=== PATIENT | female | born 1985 | race Caucasian/White ===

== ENCOUNTER 2019-04-10 19:52 | Inpatient (IN) | payer OTHER ==
[2019-04-10] MEDS ORDERED: SODIUM CHLORIDE 0.9% 1,000 ML IV STA (21:48)
[2019-04-10] MEDS ORDERED: ONDANSETRON 4 MG/2 ML VIAL IVP STA ×2 (21:48→22:54)
[2019-04-10] MEDS ORDERED: HYDROmorphone 1 MG/ML 1 ML SYRINGE IVP STA (21:48)
--- NOTE | 2019-04-10 22:24 | XR ---
EXAM: XR Abdomen, 2 Views CLINICAL HISTORY: Dark tarry stools TECHNIQUE: Frontal view of the abdomen/pelvis with upright view of the abdomen. COMPARISON: No relevant prior studies available. FINDINGS: Intraperitoneal space: No free air. Gastrointestinal tract: Unremarkable. No dilation. Bones/joints: Unremarkable. Soft tissues: IUD projects over the pelvis. IMPRESSION: No acute findings.
[2019-04-10 22:44] LABS: Basophils # (A) 0.1 k/uL (0-0.2); Basophils % (A) 0 %; Eosinophils # (A) 0.1 k/uL (0-0.7); Eosinophils % (A) 0 %; HCT 45.7 % (34.0-46.0); HGB 15.2 gm/dL (11.4-16.0); Lymphocytes # (A) 1.9 k/uL (1.0-4.8); Lymphocytes % (A) 8 %; MCH 30.8 pg (25.0-35.0); MCHC 33.2 g/dL (31.0-37.0); MCV 92.7 fL (80.0-100.0); Monocytes # (A) 1.3 k/uL (0-1.0); Monocytes % (A) 5 %; Neutrophils % (A) 85 %; Platelet Count 321 k/uL (150-450); RBC 4.92 m/uL (3.80-5.40); RDW 12.2 % (11.5-15.5); WBC 24.7 k/uL (3.8-10.6)
[2019-04-10 22:55] LABS: ALT 28 U/L (9-52); AST 30 U/L (14-36); Albumin 4.6 g/dL (3.5-5.0); Alkaline Phosphatase 77 U/L (38-126); Amylase 152 U/L (30-110); Anion Gap 11 mmol/L; Blood Urea Nitrogen 8 mg/dL (7-17); Calcium 10.1 mg/dL (8.4-10.2); Carbon Dioxide 24 mmol/L (22-30); Chloride 101 mmol/L (98-107); Glucose 95 mg/dL (74-99); Lipase 1751 U/L (23-300); Potassium 4.1 mmol/L (3.5-5.1); Sodium 136 mmol/L (137-145); Total Bilirubin 0.6 mg/dL (0.2-1.3); Total Protein 7.9 g/dL (6.3-8.2)
[2019-04-10 23:02] LABS: INR 0.9 (<1.2); Partial Thromboplastin Time 27.1 sec (22.0-30.0); Prothrombin Time 9.7 sec (9.0-12.0)
--- NOTE | 2019-04-10 23:28 | CT ---
EXAM: CT Abdomen and Pelvis With Intravenous Contrast CLINICAL HISTORY: Pain TECHNIQUE: Axial computed tomography images of the abdomen and pelvis with intravenous contrast. CTDI is 0.085, 0.085, 6.6, 6.4 mGy and DLP is 567. 8 mGy-cm. This CT exam was performed using one or more of the following dose reduction techniques: automated exposure control, adjustment of the mA and/or kV according to patient size, and/or use of iterative reconstruction technique. COMPARISON: No relevant prior studies available. FINDINGS: Lung bases: Unremarkable. No mass. No consolidation. ABDOMEN: Liver: Unremarkable. Gallbladder and bile ducts: Unremarkable. Pancreas: Unremarkable. Spleen: Unremarkable. Adrenals: Unremarkable. Kidneys and ureters: Unremarkable. Stomach and bowel: Marked wall thickening with adjacent stranding seen within the descending colon suggesting nonspecific inflammatory or infectious colitis. PELVIS: Appendix: Appendix is unremarkable. Bladder: Unremarkable. Reproductive: IUD is noted and appears to be in appropriate position. ABDOMEN and PELVIS: Intraperitoneal space: Unremarkable. Bones/joints: No acute fracture. No dislocation. Soft tissues: Unremarkable. Vasculature: Unremarkable. No abdominal aortic aneurysm. Lymph nodes: Unremarkable. IMPRESSION: Marked wall thickening with adjacent stranding seen within the descending colon suggesting nonspecific inflammatory or infectious colitis.
[2019-04-10] MEDS ORDERED: metroNIDAZOLE-NS PMX 500 MG in SALINE 1 100ML.BAG IVPB STA (23:44)
[2019-04-10] MEDS ORDERED: METOCLOPRAMIDE 5 MG/ML 2 ML VIAL IVP STA (23:45)
[2019-04-10] MEDS ORDERED: diphenhydrAMINE 50 MG/ML 1 ML VIAL IVP STA (23:45)
[2019-04-10] MEDS ORDERED: SODIUM CHLORIDE 0.9% 1,000 ML IV ONE (23:45)
[2019-04-10] MEDS ORDERED: NALOXONE 0.4 MG/ML 1 ML VIAL IV PRN (23:46)
[2019-04-10] MEDS ORDERED: ONDANSETRON 4 MG/2 ML VIAL IVP PRN (23:46)
--- NOTE | 2019-04-10 23:51 | ED ---
Abdominal Pain HPI - General Chief Complaint: Abdominal Pain Stated Complaint: Blood in stool Time Seen by Provider: 04/10/19 21:22 Source: patient Mode of arrival: wheelchair Limitations: no limitations - History of Present Illness Initial Comments: 33-year-old female patient comes in in moderate distress for evaluation of abdominal pain. Patient states she started having abdominal pain yesterday. Patient states the pain is across her central abdomen. Denies any radiation of the pain to her back. Patient states starting yesterday as well she has had dark tarry stools. States she's had 4-5 episodes of similar type stool. She denies any fever or chills. States she has been very nauseated, but has not vomited. Patient denies any history of similar symptoms. Patient reports drinking 1-2 alcoholic beverages per week. Admits to daily marijuana use. Patient states she has had symptoms of acid reflux in the past but has never been formally diagnosed, has used OTC medications as needed for this. She denies any hematuria, dysuria, urinary urgency, urinary frequency. She denies chance of . Denies any history of abdominal surgery. Patient denies any recent rash, shortness breath, chest pain, numbness, tingling, dizziness, weakness, headache, visual changes, or any other complaints. - Related Data Home Medications Medication Instructions Recorded Confirmed No Known Home Medications 04/10/19 04/10/19 Allergies Allergy/AdvReac Type Severity Reaction Status Date / Time rizatriptan [From Maxalt] AdvReac vision loss Verified 04/10/19 20:21 Review of Systems ROS Statement: Those systems with pertinent positive or pertinent negative responses have been documented in the HPI. ROS Other: All systems not noted in ROS Statement are negative. Past Medical History Past Medical History: No Reported History History of Any Multi-Drug Resistant Organisms: None Reported Past Surgical History: Back Surgery, Tonsillectomy Past Psychological History: Anxiety Smoking Status: Current every day smoker Past Alcohol Use History: Occasional Past Drug Use History: Marijuana - Past Family History Father Family Medical History: Hypertension Additional Family Medical History / Comment(s): pancreatitis General Exam Limitations: no limitations General appearance: alert, in no apparent distress, other (This is a well- developed, well-nourished adult female patient in moderate distress related to pain. Vital signs upon presentation shows damage or 98.6F, pulse 1:15, respirations 20, blood pressure 163/111, pulse ox 98% on room air.) Eye exam: Present: normal appearance, PERRL, EOMI. Absent: scleral icterus, conjunctival injection, periorbital swelling ENT exam: Present: normal exam, normal oropharynx, mucous membranes moist Respiratory exam: Present: normal lung sounds bilaterally. Absent: respiratory distress, wheezes, rales, rhonchi, stridor Cardiovascular Exam: Present: regular rate, normal rhythm, normal heart sounds. Absent: systolic murmur, diastolic murmur, rubs, gallop, clicks GI/Abdominal exam: Present: soft, tenderness (Upper abdominal tenderness), normal bowel sounds. Absent: distended, guarding, rebound, rigid Neurological exam: Present: alert, oriented X3, CN II-XII intact Psychiatric exam: Present: normal affect, normal mood Skin exam: Present: warm, dry, intact, normal color. Absent: rash Course Vital Signs 04/10/19 04/10/19 04/11/19 20:08 21: 00:39 Temperature 98.6 F 97.0 F L Pulse Rate 115 H 99 103 H Respiratory 20 18 16 Rate Blood Pressure 163/111 162/114 141/96 O2 Sat by Pulse 98 95 100 Oximetry Medical Decision Making - Medical Decision Making 33-year-old female patient presents to the emergency department today for evaluation of abdominal pain, nausea, and or tarry stools. Patient is in moderate distress upon physical exam. She does have upper abdominal tenderness. Labs reviewed and showed elevated white blood cell count at 24.7 with a neutrophil count of 21. Sodium is 136. Urine is still pending. Given elevation in white blood cell count I did perform CT of the abdomen and pelvis with contrast. This did show evidence for descending colitis. No free air or abscess is noted. Labs also revealed elevated lipase at 1700. Patient denies history of pancreatitis. We will start patient on Rocephin and Flagyl for colitis. We will administer IV fluids and make patient nothing by mouth for treatment of pancreatitis. We'll consult gastroenterology. She'll be admitted to [facility] as she currently has no primary care physician. - Lab Data Result diagrams: 04/10/19 21:12 04/10/19 21:12 Lab Results 04/10/19 04/10/19 04/10/19 Range/Units 20:55 21:12 21:12 WBC 24.7 H (3.8-10.6) k/uL RBC 4.92 (3.80-5.40) m/uL Hgb 15.2 (11.4-16.0) gm/dL Hct 45.7 (34.0-46.0) % MCV 92.7 (80.0-100.0) fL MCH 30.8 (25.0-35.0) pg MCHC 33.2 (31.0-37.0) g/dL RDW 12.2 (11.5-15.5) % Plt Count 321 (150-450) k/uL Neutrophils % 85 % Lymphocytes % 8 % Monocytes % 5 % Eosinophils % 0 % Basophils % 0 % Neutrophils # 21.0 H (1.3-7.7) k/uL Lymphocytes # 1.9 (1.0-4.8) k/uL Monocytes # 1.3 H (0-1.0) k/uL Eosinophils # 0.1 (0-0.7) k/uL Basophils # 0.1 (0-0.2) k/uL PT (9.0-12.0) sec INR (<1.2) APTT (22.0-30.0) sec Sodium 136 L (137-145) mmol/L Potassium 4.1 (3.5-5.1) mmol/L Chloride 101 (98-107) mmol/L Carbon Dioxide 24 (22-30) mmol/L Anion Gap 11 mmol/L BUN 8 (7-17) mg/dL Creatinine 0.61 (0.52-1.04) mg/dL Est GFR (CKD-EPI)AfAm >90 (>60 ml/min/1.73 sqM) Est GFR (CKD-EPI)NonAf >90 (>60 ml/min/1.73 sqM) Glucose 95 (74-99) mg/dL Calcium 10.1 (8.4-10.2) mg/dL Total Bilirubin 0.6 (0.2-1.3) mg/dL AST 30 (14-36) U/L ALT 28 (9-52) U/L Alkaline Phosphatase 77 (38-126) U/L Total Protein 7.9 (6.3-8.2) g/dL Albumin 4.6 (3.5-5.0) g/dL Amylase 152 H (30-110) U/L Lipase 1751 H (23-300) U/L Stool Occult Blood Positive H (Negative) 04/10/19 Range/Units 21:12 WBC (3.8-10.6) k/uL RBC (3.80-5.40) m/uL Hgb (11.4-16.0) gm/dL Hct (34.0-46.0) % MCV (80.0-100.0) fL MCH (25.0-35.0) pg MCHC (31.0-37.0) g/dL RDW (11.5-15.5) % Plt Count (150-450) k/uL Neutrophils % % Lymphocytes % % Monocytes % % Eosinophils % % Basophils % % Neutrophils # (1.3-7.7) k/uL Lymphocytes # (1.0-4.8) k/uL Monocytes # (0-1.0) k/uL Eosinophils # (0-0.7) k/uL Basophils # (0-0.2) k/uL PT 9.7 (9.0-12.0) sec INR 0.9 (<1.2) APTT 27.1 (22.0-30.0) sec Sodium (137-145) mmol/L Potassium (3.5-5.1) mmol/L Chloride (98-107) mmol/L Carbon Dioxide (22-30) mmol/L Anion Gap mmol/L BUN (7-17) mg/dL Creatinine (0.52-1.04) mg/dL Est GFR (CKD-EPI)AfAm (>60 ml/min/1.73 sqM) Est GFR (CKD-EPI)NonAf (>60 ml/min/1.73 sqM) Glucose (74-99) mg/dL Calcium (8.4-10.2) mg/dL Total Bilirubin (0.2-1.3) mg/dL AST (14-36) U/L ALT (9-52) U/L Alkaline Phosphatase (38-126) U/L Total Protein (6.3-8.2) g/dL Albumin (3.5-5.0) g/dL Amylase (30-110) U/L Lipase (23-300) U/L Stool Occult Blood (Negative) - Radiology Data Radiology results: report reviewed, image reviewed Two-view x-ray of the abdomen is obtained. Report was reviewed in its entirety. Impression by Dr. Leblanc shows no acute findings. CT abdomen and pelvis with contrast was obtained. Report was reviewed in its entirety. Impression by Dr. Leblanc shows multiple thickening with adjacent stranding seen within the descending colon suggesting nonspecific inflammatory or infectious colitis. Disposition Clinical Impression: Acute pancreatitis, Colitis Disposition: ADMITTED IP TO THIS [facility] Condition: Serious Decision to Admit Reason: Admit from Decision Date: 04/10/19 Decision Time: 23:59
[2019-04-11] MEDS: SODIUM CHLORIDE 0.9% 1,000 ML IV SCH ×4 (00:20→21:07)
[2019-04-11] MEDS ORDERED: METOCLOPRAMIDE 5 MG/ML 2 ML VIAL IVP STA (01:20)
[2019-04-11 01:33] LABS: Appearance,Urine Clear (Clear); Bacteria,Urine Rare /hpf; Bilirubin,Urine Negative (Negative); Blood,Urine Trace (Negative); Color,Urine Yellow; Glucose,Urine (UA) Negative (Negative); Ketones,Urine 3+ (Negative); Leukocyte Esterase,Urine Small (Negative); Mucus,Urine Few /hpf; Nitrite,Urine Negative (Negative); PH, Urine 6.5 (5.0-8.0); Protein,Urine Trace (Negative); RBC,Urine 8 /hpf (0-5); Squamous Epithelial Cell,Urine 10 /hpf (0-4); Urobilinogen,Urine <2.0 mg/dL (<2.0); WBC,Urine 8 /hpf (0-5)
[2019-04-11] MEDS: HYDROmorphone 1 MG/ML 1 ML SYRINGE IVP PRN ×4 (01:33→21:51)
[2019-04-11 01:35] LABS: Specific Gravity,Urine >1.050 (1.001-1.035)
[2019-04-11] MEDS: metroNIDAZOLE-NS PMX 500 MG in SALINE 1 100ML.BAG IVPB SCH ×3 (06:13→17:07)
--- NOTE | 2019-04-11 07:38 | P.HPIM ---
History of Present Illness This is a pleasant 33 years old female with past medical history of anxiety, substance abuse including marijuana, and nicotine dependence. She does not have medical insurance and she does not follow up with primary care doctor. She presents because of abdominal pain of 2 days' duration. Central, colicky, nonradiating, severe. Associated with dark stool and fresh blood per rectum, small amount for the last couple days. No nausea vomiting. She has some nausea in the emergency room may be related to medication. She denies fever. She denies chest pain or dyspnea. No urinary symptoms. No syncope or dizziness. She smokes about 1 cigarette per day. She uses marijuana at times. She drinks alcohol occasionally. No other illicit drugs. Patient is afebrile, tachycardic. She is hemodynamically stable. She has leukocytosis of 20 4.7K. INR within normal limits, with sodium 136. Creatinine 0.6. Urinalysis is suspicious for infection. Lipase 1751. And she has positive occult blood in stool. Abdominal CT with contrast done in emergency room: Ascending inflammatory or infectious colitis. In the emergency room patient received ceftriaxone. She was started on Dilaudid for pain, she received Reglan and Flagyl. And IV fluids Review of Systems CONSTITUTIONAL: No fever, no malaise, no fatigue. HEENT: No recent visual problems or hearing problems. Denied any sore throat. CARDIOVASCULAR: No orthopnea, PND, no palpitations, no syncope. PULMONARY: No shortness of breath, no cough, no hemoptysis. GASTROINTESTINAL: No diarrhea, no nausea, no vomiting, no abdominal pain. Normo active bowel sounds. NEUROLOGICAL: No headaches, no weakness, no numbness. HEMATOLOGICAL: Denies any bleeding or petechiae. GENITOURINARY: Denies any burning micturition, frequency, or urgency. MUSCULOSKELETAL/RHEUMATOLOGICAL: Denies any joint pain, swelling, or any muscle pain. ENDOCRINE: Denies any polyuria or polydipsia. Past Medical History Past Medical History: No Reported History History of Any Multi-Drug Resistant Organisms: None Reported Past Surgical History: Back Surgery, Tonsillectomy Past Anesthesia/Blood Transfusion Reactions: No Reported Reaction Past Psychological History: Anxiety Smoking Status: Current every day smoker Past Alcohol Use History: Occasional Past Drug Use History: Marijuana - Past Family History Father Family Medical History: Hypertension Additional Family Medical History / Comment(s): pancreatitis Medications and Allergies Home Medications Medication Instructions Recorded Confirmed Type No Known Home Medications 04/10/19 04/10/19 History Allergies Allergy/AdvReac Type Severity Reaction Status Date / Time rizatriptan [From Maxalt] AdvReac vision loss Verified 04/10/19 20:21 Physical Exam Vitals: Vital Signs Temp Pulse Pulse Resp BP BP Pulse Ox 04/11/19 05:17 98.0 F 93 18 121/77 99 04/11/19 00:39 97.0 F L 103 H 16 141/96 100 04/10/19 21:19 99 18 162/114 95 04/10/19 20:08 98.6 F 115 H 20 163/111 98 Intake and Output 04/10/19 04/11/19 04/11/19 22:59 06:59 14:59 Other: # Voids 1 Weight 58.967 kg GENERAL: The patient is alert and oriented x3, not in any acute distress. Well developed, well nourished. HEENT: Pupils are round and equally reacting to light. EOMI. No scleral icterus. No conjunctival pallor. Normocephalic, atraumatic. No pharyngeal erythema. No thyromegaly. CARDIOVASCULAR: S1 and S2 present. No murmurs, rubs, or gallops. PULMONARY: Chest is clear to auscultation, no wheezing or crackles. -ABDOMEN: Soft, generalized tenderness, no rebound tenderness or guarding, nondistended, normoactive bowel sounds. No palpable organomegaly. MUSCULOSKELETAL: No joint swelling or deformity. EXTREMITIES: No cyanosis, clubbing, or pedal edema. NEUROLOGICAL: Gross neurological examination did not reveal any focal deficits. SKIN: No rashes. Results CBC & Chem 7: 04/10/19 21:12 04/10/19 21:12 Labs: Abnormal Lab Results - Last 24 Hours (Table) 04/10/19 04/10/19 04/10/19 Range/Units 20:55 21:12 21:12 WBC 24.7 H (3.8-10.6) k/uL Neutrophils # 21.0 H (1.3-7.7) k/uL Monocytes # 1.3 H (0-1.0) k/uL Sodium 136 L (137-145) mmol/L Amylase 152 H (30-110) U/L Lipase 1751 H (23-300) U/L Ur Specific [place] (1.001-1.035) Urine Protein (Negative) Urine Ketones (Negative) Urine Blood (Negative) Ur Leukocyte Esterase (Negative) Urine RBC (0-5) /hpf Urine WBC (0-5) /hpf Ur Squamous Epith Cells (0-4) /hpf Urine Bacteria (None) /hpf Urine Mucus (None) /hpf Stool Occult Blood Positive H (Negative) 04/11/19 Range/Units 01:15 WBC (3.8-10.6) k/uL Neutrophils # (1.3-7.7) k/uL Monocytes # (0-1.0) k/uL Sodium (137-145) mmol/L Amylase (30-110) U/L Lipase (23-300) U/L Ur Specific [place] >1.050 H (1.001-1.035) Urine Protein Trace H (Negative) Urine Ketones 3+ H (Negative) Urine Blood Trace H (Negative) Ur Leukocyte Esterase Small H (Negative) Urine RBC 8 H (0-5) /hpf Urine WBC 8 H (0-5) /hpf Ur Squamous Epith Cells 10 H (0-4) /hpf Urine Bacteria Rare H (None) /hpf Urine Mucus Few H (None) /hpf Stool Occult Blood (Negative) Thrombosis Risk Factor Assmnt - Choose All That Apply Any of the Below Risk Factors Present?: No Other Risk Factors: No Other congenital or acquired thrombophilia - If yes, enter type in comment: No Thrombosis Risk Factor Assessment Level: Very Low Risk Assessment and Plan Assessment: Acute ascending colitis Acute Pancreatitis Possible urinary tract infection. Nicotine dependence substance abuse, marijuana History of anxiety Plan: This is a pleasant 33 years old female who presents with pancreatitis and colitis. Continue with antibiotics. Continue with IV fluid. Pain management. GI consult is already called by the emergency room team.Labs and medication were reviewed.. Continue same treatment. Continue with symptomatic treatment. Resume home medication. Monitor lytes and vitals. DVT and GI prophylaxis. Further recommendations of the clinical course of the patient DVT prophylaxis: Subcutaneous Lovenox GI Prophylaxis: Pepcid Prognosis is guarded
[2019-04-11] MEDS ORDERED: FAMOTIDINE 20 MG/2 ML VIAL IV SCH (09:00)
[2019-04-11] MEDS: ENOXAPARIN 40 MG/0.4 ML SYRINGE SQ SCH (09:13)
[2019-04-11 09:53] LABS: Basophils # (A) 0.1 k/uL (0-0.2); Basophils % (A) 0 %; Eosinophils # (A) 0.1 k/uL (0-0.7); Eosinophils % (A) 1 %; HCT 36.4 % (34.0-46.0); Lymphocytes # (A) 1.7 k/uL (1.0-4.8); Lymphocytes % (A) 11 %; MCH 31.1 pg (25.0-35.0); MCHC 33.1 g/dL (31.0-37.0); MCV 93.8 fL (80.0-100.0); Mean Platelet Volume 7.8; Monocytes # (A) 0.8 k/uL (0-1.0); Monocytes % (A) 5 %; Neutrophils # (A) 12.8 k/uL (1.3-7.7); Neutrophils % (A) 81 %; Platelet Count 238 k/uL (150-450); RBC 3.88 m/uL (3.80-5.40); WBC 15.7 k/uL (3.8-10.6)
[2019-04-11 10:00] LABS: HGB 12.1 gm/dL (11.4-16.0)
[2019-04-11 10:03] LABS: Anion Gap 4 mmol/L; Blood Urea Nitrogen 6 mg/dL (7-17); Calcium 7.9 mg/dL (8.4-10.2); Carbon Dioxide 26 mmol/L (22-30); Chloride 109 mmol/L (98-107); Glucose 81 mg/dL (74-99); Potassium 3.8 mmol/L (3.5-5.1); Sodium 139 mmol/L (137-145)
--- NOTE | 2019-04-11 10:36 | P.CONS ---
History of Present Illness - Reason for Consult Consult date: 04/11/19 Pancreatitis colitis Requesting physician: [place] - Chief Complaint Abdominal pain - History of Present Illness 33-year-old female with a history of unexplained weight loss greater than 20 pounds over the last year, decreased appetite, anxiety chronic marijuana usage familial pancreatitis admitted with acute abdominal pain 2-3 days duration with constipation and elevated pancreatic enzymes. Over the past few days she's developed severe sharp pain across her lower abdomen umbilicus region associated with constipation. She took a dose of Pepto-Bismol. Passed a few very small bowel movement that she describes black in color. Denies gross hematemesis hematochezia. No changes in skin or vision. No recent antibiotics. No history of colitis or known bowel disorders or inflammatory bowel diseases. No history of pancreatitis. She reports her father having a history of recurrent pancreatitis of unclear etiology. No aspirin and NSAIDs or alcohol usage. No history of pancreatitis. Admission white count 24.7 presently 15.7. Hemoglobin 12.1. MCV 93. Platelet 238. INR 0.9. BUN 8. Creatinine 0.6. LFTs within normal limits. Amylase 152. Lipase 1751. FOBT positive. CT abdomen and pelvis unremarkable liver pancreas gallbladder and bile ducts. Marked wall thickening with adjacent stranding seen within the descending colon suggesting nonspecific inflammatory or infectious colitis. Receiving IV antibiotics. Decreased appetite with unexplained weight loss 25-30 pounds over the past year with 6-8 pounds over the last month. Review of Systems Constitutional: Denies fever, chills, sweats, weight loss per HPI. HEENT: Negative for migraines, blurred vision or loss, earaches, drainage, tinnitus, oral mucosal lesions, dysphagia, or odynophagia. CARDIAC: Negative for chest pain, arrhythmias, or palpitation. RESPIRATORY: Negative for shortness of breath, hemoptysis, cough, or sputum production. GI: See HPI for pertinent findings. : Negative for hematuria, urgency, frequency, polyuria, or dysuria. GYNc: Denies possibility of . Negative vaginal discharge. MUSCULOSKELETAL: Negative for muscle aches, swelling, arthritis, and arthralgias. NEUROLOGIC: Negative for stroke or TIA. ENDOCRINE: Negative for thyroid problems. SKIN: Negative for rash or itching. PSYCHIATRIC: Negative history for depression and anxiety Past Medical History Past Medical History: No Reported History History of Any Multi-Drug Resistant Organisms: None Reported Past Surgical History: Back Surgery, Tonsillectomy Past Anesthesia/Blood Transfusion Reactions: No Reported Reaction Past Psychological History: Anxiety Smoking Status: Current every day smoker Past Alcohol Use History: Occasional Past Drug Use History: Marijuana - Past Family History Father Family Medical History: Hypertension Additional Family Medical History / Comment(s): pancreatitis Medications and Allergies Home Medications Medication Instructions Recorded Confirmed Type No Known Home Medications 04/10/19 04/10/19 History Allergies Allergy/AdvReac Type Severity Reaction Status Date / Time rizatriptan [From Maxalt] AdvReac vision loss Verified 04/10/19 20:21 Physical Exam Vitals: Vital Signs Temp Pulse Pulse Resp BP BP Pulse Ox 04/11/19 05: 98.0 F 93 18 121/77 99 04/11/19 00:39 97.0 F L 103 H 16 141/96 100 04/10/19 21:19 99 18 162/114 95 04/10/19 20:08 98.6 F 115 H 20 163/111 98 Intake and Output 04/10/19 04/11/19 04/11/19 22:59 06:59 14:59 Other: # Voids 1 Weight 58.967 kg General appearance: The patient is alert, oriented, in no acute distress. HET: Head is normocephalic and atraumatic. Pupils are equal and reactive. Oropharynx is clear without lesions. Neck: Supple without lymphadenopathy. Trachea midline. Heart: S1 S2. Regular rate and rhythm. Lungs: No crackles or wheezes are heard. Abdomen: Visible weight loss abdominal striae present, soft mild tenderness across the bilateral lower abdomen greater than left and right, nondistended with bowel sounds. No peritoneal signs. No palpable organomegaly or masses. Extremities: Normal skin color and turgor. No cyanosis, rash, ulceration, clubbing, or edema. Radial and pedal pulses are 2/4 bilaterally. Neurological: No focal deficits. Strength and sensation are grossly intact. Results CBC & Chem 7: 04/11/19 09:11 04/11/19 09:11 Labs: Abnormal Lab Results - Last 24 Hours (Table) 04/10/19 04/10/19 04/10/19 Range/Units 20:55 21:12 21:12 WBC 24.7 H (3.8-10.6) k/uL Neutrophils # 21.0 H (1.3-7.7) k/uL Monocytes # 1.3 H (0-1.0) k/uL Sodium 136 L (137-145) mmol/L Chloride (98-107) mmol/L BUN (7-17) mg/dL Creatinine (0.52-1.04) mg/dL Calcium (8.4-10.2) mg/dL Amylase 152 H (30-110) U/L Lipase 1751 H (23-300) U/L Ur Specific [place] (1.001-1.035) Urine Protein (Negative) Urine Ketones (Negative) Urine Blood (Negative) Ur Leukocyte Esterase (Negative) Urine RBC (0-5) /hpf Urine WBC (0-5) /hpf Ur Squamous Epith Cells (0-4) /hpf Urine Bacteria (None) /hpf Urine Mucus (None) /hpf Stool Occult Blood Positive H (Negative) 04/11/19 04/11/19 04/11/19 Range/Units 01:15 09:11 09:11 WBC 15.7 H (3.8-10.6) k/uL Neutrophils # 12.8 H (1.3-7.7) k/uL Monocytes # (0-1.0) k/uL Sodium (137-145) mmol/L Chloride 109 H (98-107) mmol/L BUN 6 L (7-17) mg/dL Creatinine 0.49 L (0.52-1.04) mg/dL Calcium 7.9 L (8.4-10.2) mg/dL Amylase (30-110) U/L Lipase (23-300) U/L Ur Specific [place] >1.050 H (1.001-1.035) Urine Protein Trace H (Negative) Urine Ketones 3+ H (Negative) Urine Blood Trace H (Negative) Ur Leukocyte Esterase Small H (Negative) Urine RBC 8 H (0-5) /hpf Urine WBC 8 H (0-5) /hpf Ur Squamous Epith Cells 10 H (0-4) /hpf Urine Bacteria Rare H (None) /hpf Urine Mucus Few H (None) /hpf Stool Occult Blood (Negative) CT scan - abdomen: report reviewed (Dr. Enrique) Assessment and Plan (1) Acute pancreatitis Narrative/Plan: 33-year-old female admitted with acute leukocytosis, abdominal pain constipation with reports of black-colored bowel movement without overt hematemesis hematochezia elevated liver enzymes consistent with acute pancreatitis with normal liver function studies. CT reported descending colitis no reported abnormalities of the liver spleen pancreas or biliary tree. Etiology of pancreatitis and colitis is unclear. Differentials to consider but not limited to regarding acute pancreatitis could be pancreatic divisum, peptic ulcer disease, idiopathic, autoimmune possible viral. Etiology of colitis possible infectious possible inflammatory possible ischemic secondary to reported const ipation. Presently no clinical evidence of active GI bleeding. Current Visit: Yes Status: Acute Code(s): K85.90 - ACUTE PANCREATITIS WITHOUT NECROSIS OR INFECTION, UNSP SNOMED Code(s): 134790079 (2) Acute colitis Current Visit: Yes Status: Acute Code(s): K52.9 - NONINFECTIVE GASTROENTERITIS AND COLITIS, UNSPECIFIED SNOMED Code(s): 50786970 (3) Unexplained weight loss Current Visit: Yes Status: Acute Code(s): R63.4 - ABNORMAL WEIGHT LOSS SNOMED Code(s): 963750085 (4) Marijuana smoker Current Visit: Yes Status: Acute Code(s): F12.90 - CANNABIS USE, UNSPECIFIED, UNCOMPLICATED SNOMED Code(s): 709134110 Plan: 1. Nothing by mouth except ice chips popsicles medications. We'll order additi onal stool studies if patient has diarrhea. 2. Daily monitoring of CBC CMP amylase lipase. 3. Protonix 40 mg IV daily. Stool softeners avoid constipation. Continue with IV antibiotics. 4. Will obtain IgG subclass 1-4 and [place] for autoimmune evaluation. Check triglycerides. 5. Inpatient EGD colonoscopy was advised and discussed in regards to weight loss positive FOBT and pancreatitis presentation. Timing of procedure will be based on her clinical course presently she is not able to tolerate any oral liquids therefore not able to tolerate a bowel prep at this time. Outpatient endoscopic ultrasound was also discussed considering her history of familial pancreatitis and will be contingent on clinical course. 6. IV hydration 150 mL an hour. We'll follow closely with you. Thank you for this kind referral and the opportunity to participate in the care of your patient. This consultation was discussed with Dr. Enrique. The impression and plan of care have been directed as dictated.
[2019-04-11] MEDS: SENNOSIDES-DOCUSATE SODIUM 1 EACH TAB PO SCH ×2 (11:22→21:06)
[2019-04-11] MEDS: PANTOPRAZOLE 40 MG/10 ML VIAL IVP SCH (11:22)
[2019-04-11] MEDS: TRIMETHOBENZAMIDE 300 MG CAP PO PRN ×2 (11:46→17:41)
[2019-04-11] MEDS ORDERED: ONDANSETRON 4 MG/2 ML VIAL IVP PRN (15:26)
[2019-04-11] MEDS: ONDANSETRON 4 MG/2 ML VIAL IVP PRN ×2 (15:34→21:06)
[2019-04-12] MEDS: metroNIDAZOLE-NS PMX 500 MG in SALINE 1 100ML.BAG IVPB SCH ×4 (01:05→17:30)
[2019-04-12] MEDS: PROMETHAZINE INJ 25 MG in SODIUM CHLORIDE 0.9% 50 ML IVPB PRN ×3 (02:25→17:30)
[2019-04-12] MEDS: HYDROmorphone 1 MG/ML 1 ML SYRINGE IVP PRN ×3 (02:50→17:29)
[2019-04-12] MEDS: SODIUM CHLORIDE 0.9% 1,000 ML IV SCH ×3 (06:02→17:31)
[2019-04-12] MEDS: SENNOSIDES-DOCUSATE SODIUM 1 EACH TAB PO SCH ×2 (09:08→21:46)
[2019-04-12] MEDS: PANTOPRAZOLE 40 MG/10 ML VIAL IVP SCH (09:09)
[2019-04-12] MEDS: ENOXAPARIN 40 MG/0.4 ML SYRINGE SQ SCH (09:09)
[2019-04-12 09:30] LABS: Basophils % (A) 1 %; Eosinophils # (A) 0.2 k/uL (0-0.7); Eosinophils % (A) 2 %; HCT 36.8 % (34.0-46.0); HGB 11.9 gm/dL (11.4-16.0); Lymphocytes # (A) 2.3 k/uL (1.0-4.8); Lymphocytes % (A) 24 %; MCH 30.6 pg (25.0-35.0); MCHC 32.3 g/dL (31.0-37.0); MCV 94.7 fL (80.0-100.0); Mean Platelet Volume 7.6; Monocytes # (A) 0.4 k/uL (0-1.0); Monocytes % (A) 4 %; Neutrophils # (A) 6.3 k/uL (1.3-7.7); Neutrophils % (A) 67 %; Platelet Count 264 k/uL (150-450); RBC 3.89 m/uL (3.80-5.40); RDW 12.5 % (11.5-15.5); WBC 9.4 k/uL (3.8-10.6)
[2019-04-12 09:49] LABS: ALT 25 U/L (9-52); AST 18 U/L (14-36); Albumin 3.1 g/dL (3.5-5.0); Alkaline Phosphatase 42 U/L (38-126); Amylase 36 U/L (30-110); Anion Gap 5 mmol/L; Blood Urea Nitrogen 3 mg/dL (7-17); Calcium 8.3 mg/dL (8.4-10.2); Carbon Dioxide 26 mmol/L (22-30); Chloride 108 mmol/L (98-107); Glucose 63 mg/dL (74-99); Lipase 48 U/L (23-300); Potassium 3.9 mmol/L (3.5-5.1); Sodium 139 mmol/L (137-145); Total Bilirubin 0.3 mg/dL (0.2-1.3); Total Protein 5.6 g/dL (6.3-8.2)
[2019-04-12 11:47] LABS: IgG Subclass 3 7.2 mg/dL (11.0-85.0); IgG Subclass 4 31.3 mg/dL (3.0-175.0)
[2019-04-12] MEDS ORDERED: BISACODYL 5 MG TABLET.DR PO STA (13:22)
--- NOTE | 2019-04-12 13:26 | P.PN ---
Subjective Progress Note Date: 04/12/19 Principal diagnosis: Colitis pancreatitis Increased nausea yesterday improved with Phenergan. Passed a bowel movement that was blood tinged today. Pancreatic enzymes normalized. MADISON negative. Hemoglobin 11.9. White count 9.4. Lactoferrin positive. Triglycerides 86. IgG3 7.2. Objective - Vital Signs Vital signs: Vital Signs Temp 98.9 F 04/12/19 05:08 Pulse 94 04/12/19 05:08 Resp 18 04/12/19 05:08 BP 119/73 04/12/19 05:08 Pulse Ox 99 04/12/19 05:08 Intake & Output 04/11/19 04/12/19 04/12/19 18:59 06:59 18:59 Other: Voiding Method Toilet # Voids 2 2 # Bowel Movements 0 - Exam General appearance: The patient is alert, oriented, in no acute distress. HET: Head is normocephalic and atraumatic. Pupils are equal and reactive. Oropharynx is clear without lesions. Neck: Supple without lymphadenopathy. Trachea midline. Heart: S1 S2. Regular rate and rhythm. Lungs: No crackles or wheezes are heard. Abdomen: Soft, tenderness to the lower abdomen bilaterally, nondistended with bowel sounds. No peritoneal signs. No palpable organomegaly or masses. Extremities: Normal skin color and turgor. No cyanosis, rash, ulceration, clubbing, or edema. Radial and pedal pulses are 2/4 bilaterally. Neurological: No focal deficits. Strength and sensation are grossly intact. - Labs CBC & Chem 7: 04/12/19 08:34 04/12/19 08:34 Labs: Abnormal Lab Results - Last 24 Hours (Table) 04/11/19 04/11/19 04/12/19 Range/Units 10:24 14:50 08:34 Chloride 108 H (98-107) mmol/L BUN 3 L (7-17) mg/dL Glucose 63 L (74-99) mg/dL Calcium 8.3 L (8.4-10.2) mg/dL Total Protein 5.6 L (6.3-8.2) g/dL Albumin 3.1 L (3.5-5.0) g/dL Stool Lactoferrin POSITIVE H (NEGATIVE) IgG3 7.2 L (11.0-85.0) mg/dL Microbiology - Last 24 Hours (Table) 04/11/19 00:30 Blood Culture - Preliminary Blood No Growth after 24 hours 04/11/19 14:50 Stool Culture - Preliminary Stool 04/11/19 11:05 Urine Culture - Preliminary Urine,Voided Assessment and Plan (1) Acute pancreatitis Narrative/Plan: 33-year-old female admitted with acute leukocytosis, abdominal pain constipation with reports of black-colored bowel movement without overt hematemesis hematochezia elevated liver enzymes consistent with acute pancreatitis with normal liver function studies. CT reported descending colitis no reported abnormalities of the liver spleen pancreas or biliary tree. Etiology of pancreatitis and colitis is unclear. Differentials to consider but not limited to regarding acute pancreatitis could be pancreatic divisum, peptic ulcer disease, idiopathic, autoimmune possible viral. Etiology of colitis possible infectious possible inflammatory possible ischemic secondary to reported constipation. Presently no clinical evidence of active GI bleeding. Current Visit: Yes Status: Acute Code(s): K85.90 - ACUTE PANCREATITIS WITH OUT NECROSIS OR INFECTION, UNSP SNOMED Code(s): 346348812 (2) Acute colitis Current Visit: Yes Status: Acute Code(s): K52.9 - NONINFECTIVE GASTROENTERITIS AND COLITIS, UNSPECIFIED SNOMED Code(s): 49676959 (3) Unexplained weight loss Current Visit: Yes Status: Acute Code(s): R63.4 - ABNORMAL WEIGHT LOSS SNOMED Code(s): 361792552 (4) Marijuana smoker Current Visit: Yes Status: Acute Code(s): F12.90 - CANNABIS USE, UNSPECIFIED, UNCOMPLICATED SNOMED Code(s): 234392871 Plan: 1. Clear liquids. Patient is willing to try bowel prep tonight for EGD colonoscopy evaluation tomorrow. Continue with present medical therapy. Nothing by mouth after midnight. Assessment and plan a care discussed with Dr. Enrique
[2019-04-12] MEDS ORDERED: PEG 3350-NA SULF,BICARB,CL/KCL 4,000 ML BOTTLE PO ONE (16:00)
--- NOTE | 2019-04-12 16:43 | P.PN ---
Subjective his is a pleasant 33 years old female with past medical history of anxiety, substance abuse including marijuana, and nicotine dependence. She does not have medical insurance and she does not follow up with primary care doctor. She presents because of abdominal pain of 2 days' duration. Central, colicky, nonradiating, severe. Associated with dark stool and fresh blood per rectum, small amount for the last couple days. No nausea vomiting. She has some nausea in the emergency room may be related to medication. She denies fever. She denies chest pain or dyspnea. No urinary symptoms. No syncope or dizziness. She smokes about 1 cigarette per day. She uses marijuana at times. She drinks alcohol occasionally. No other illicit drugs. Patient is afebrile, tachycardic. She is hemodynamically stable. She has leukocytosis of 20 4.7K. INR within normal limits, with sodium 136. Creatinine 0.6. Urinalysis is suspicious for infection. Lipase 1751. And she has positive occult blood in stool. Abdominal CT with contrast done in emergency room: Ascending inflammatory or infectious colitis. In the emergency room patient received ceftriaxone. She was started on Dilaudid for pain, she received Reglan and Flagyl. And IV fluids 04/12/2019 Patient remains nothing by mouth, her abdominal pain is about 6/10 in severity associated with some tenderness in the left side however her abdominal exam looks soft and there is no rebound tenderness or guarding. She had severe vomiting yesterday which is better controlled with Phenergan, no more vomiting this morning. She has no bowel movement or gas. Abdominal x-ray is ordered. P atient refused to check venous status and the serum, risks benefits and alternatives were explained. Gastroenterology team are following the case closely. A in a is negative. Her leukocytosis improved and her White cell count is 9.4K, hemoglobin 11.9. Triglycerides 86 and IgG G class are within normal except for IgG 3 slightly low at 7.2. GI team recommended clear liquid diet and preparation for possible EGD/colonoscopy tomorrow. Objective - Vital Signs Vital signs: Vital Signs Temp 97.8 F 04/12/19 13:12 Pulse 87 04/12/19 13:12 Resp 16 04/12/19 15:42 BP 141/81 04/12/19 13:12 Pulse Ox 98 04/12/19 13:12 Intake & Output 04/11/19 04/12/19 04/12/19 18:59 06:59 18:59 Other: Voiding Method Toilet # Voids 2 2 1 # Bowel Movements 0 - Exam GENERAL: The patient is alert and oriented x3, not in any acute distress. Well developed, well nourished. HEENT: Pupils are round and equally reacting to light. EOMI. No scleral icterus. No conjunctival pallor. Normocephalic, atraumatic. No pharyngeal erythema. No thyromegaly. CARDIOVASCULAR: S1 and S2 present. No murmurs, rubs, or gallops. PULMONARY: Chest is clear to auscultation, no wheezing or crackles. -ABDOMEN: Soft, left side tenderness, no rebound tenderness or guarding, nondistended, normoactive bowel sounds. No palpable organomegaly. MUSCULOSKELETAL: No joint swelling or deformity. EXTREMITIES: No cyanosis, clubbing, or pedal edema. NEUROLOGICAL: Gross neurological examination did not reveal any focal deficits. SKIN: No rashes. - Labs CBC & Chem 7: 04/12/19 08:34 04/12/19 08:34 Labs: Abnormal Lab Results - Last 24 Hours (Table) 04/11/19 04/11/19 04/12/19 Range/Units 10:24 14:50 08:34 Chloride 108 H (98-107) mmol/L BUN 3 L (7-17) mg/dL Glucose 63 L (74-99) mg/dL Calcium 8.3 L (8.4-10.2) mg/dL Total Protein 5.6 L (6.3-8.2) g/dL Albumin 3.1 L (3.5-5.0) g/dL Stool Lactoferrin POSITIVE H (NEGATIVE) IgG3 7.2 L (11.0-85.0) mg/dL Microbiology - Last 24 Hours (Table) 04/11/19 11:05 Urine Culture - Final Urine,Voided 04/11/19 00:30 Blood Culture - Preliminary Blood No Growth after 24 hours 04/11/19 14:50 Stool Culture - Preliminary Stool Assessment and Plan Assessment: Acute ascending colitis Acute Pancreatitis Possible urinary tract infection. Nicotine dependence substance abuse, marijuana History of anxiety Plan: This is a pleasant 33 years old female who presents with pancreatitis and colitis. Continue with antibiotics. Continue with IV fluid. Pain management. GI consult is already called by the emergency room team.Labs and medication were reviewed.. Continue same treatment. Continue with symptomatic treatment. Resume home medication. Monitor lytes and vitals. DVT and GI prophylaxis. Further recommendations of the clinical course of the patient DVT prophylaxis: Subcutaneous Lovenox GI Prophylaxis: Pepcid Prognosis is guarded
--- NOTE | 2019-04-12 17:03 | XR ---
EXAMINATION TYPE: XR abdomen 1V DATE OF EXAM: 04/12/2019 COMPARISON: 04/10/2019 HISTORY: Nausea and vomiting TECHNIQUE: 2 views supine FINDINGS: There is distended gas-filled loops of large bowel. There is no sign of free air. There are no pathologic calcifications over the kidneys. IUD is noted. IMPRESSION: Large bowel gas without obstructive pattern. No free air. No adverse change compared to l ast exam.
[2019-04-12] MEDS: ONDANSETRON 4 MG/2 ML VIAL IVP PRN (21:49)
[2019-04-13] MEDS: PROMETHAZINE INJ 25 MG in SODIUM CHLORIDE 0.9% 50 ML IVPB PRN ×3 (00:21→19:12)
[2019-04-13] MEDS: SODIUM CHLORIDE 0.9% 1,000 ML IV SCH ×5 (00:39→19:40)
[2019-04-13] MEDS: metroNIDAZOLE-NS PMX 500 MG in SALINE 1 100ML.BAG IVPB SCH ×4 (02:01→17:13)
--- NOTE | 2019-04-13 08:08 | P.PN ---
Subjective his is a pleasant 33 years old female with past medical history of anxiety, substance abuse including marijuana, and nicotine dependence. She does not have medical insurance and she does not follow up with primary care doctor. She presents because of abdominal pain of 2 days' duration. Central, colicky, nonradiating, severe. Associated with dark stool and fresh blood per rectum, small amount for the last couple days. No nausea vomiting. She has some nausea in the emergency room may be related to medication. She denies fever. She denies chest pain or dyspnea. No urinary symptoms. No syncope or dizziness. She smokes about 1 cigarette per day. She uses marijuana at times. She drinks alcohol occasionally. No other illicit drugs. Patient is afebrile, tachycardic. She is hemodynamically stable. She has leukocytosis of 20 4.7K. INR within normal limits, with sodium 136. Creatinine 0.6. Urinalysis is suspicious for infection. Lipase 1751. And she has positive occult blood in stool. Abdominal CT with contrast done in emergency room: Ascending inflammatory or infectious colitis. In the emergency room patient received ceftriaxone. She was started on Dilaudid for pain, she received Reglan and Flagyl. And IV fluids 04/12/2019 Patient remains nothing by mouth, her abdominal pain is about 6/10 in severity associated with some tenderness in the left side however her abdominal exam looks soft and there is no rebound tenderness or guarding. She had severe vomiting yesterday which is better controlled with Phenergan, no more vomiting this morning. She has no bowel movement or gas. Abdominal x-ray is ordered. P atient refused to check venous status and the serum, risks benefits and alternatives were explained. Gastroenterology team are following the case closely. A in a is negative. Her leukocytosis improved and her White cell count is 9.4K, hemoglobin 11.9. Triglycerides 86 and IgG G class are within normal except for IgG 3 slightly low at 7.2. GI team recommended clear liquid diet and preparation for possible EGD/colonoscopy tomorrow. 04/13/2019 Patient could not tolerate the preparation for her colonoscopy last night because of nausea and vomiting. She says she vomited twice last night. Patient refused to eat this morning. However patient states that her pain level is 2- 3/10 in severity. She has a little bump on movement yesterday. She has low- grade fever today of 99.9. Her leukocytosis improved yesterday. WBC 9.4K. Labs from today are still pending. Urine culture showed no growth. Stool culture still pending today. No chest pain or dyspnea. On abdominal exam she has soft abdomen. She still have some tenderness in the left side of the belly. Abdominal x-rays was negative for intestinal obstruction or other lesion. GI team are following the case. Patient remains on Flagyl and ceftriaxone. Objective - Vital Signs Vital signs: Vital Signs Temp 98.6 F 04/13/19 07:00 Pulse 77 04/13/19 07:00 Resp 18 04/13/19 07:00 BP 121/79 04/13/19 07:00 Pulse Ox 98 04/13/19 07:00 Intake & Output 04/12/19 04/13/19 04/13/19 18:59 06:59 18:59 Intake Total 540 200 Balance 540 200 Intake: Oral 540 200 Other: Voiding Method Toilet # Voids 2 2 - Exam GENERAL: The patient is alert and oriented x3, not in any acute distress. Well developed, well nourished. HEENT: Pupils are round and equally reacting to light. EOMI. No scleral icterus. No conjunctival pallor. Normocephalic, atraumatic. No pharyngeal erythema. No t hyromegaly. CARDIOVASCULAR: S1 and S2 present. No murmurs, rubs, or gallops. PULMONARY: Chest is clear to auscultation, no wheezing or crackles. -ABDOMEN: Soft, left side with less tenderness, no rebound tenderness or guarding, nondistended, normoactive bowel sounds. No palpable organomegaly. MUSCULOSKELETAL: No joint swelling or deformity. EXTREMITIES: No cyanosis, clubbing, or pedal edema. NEUROLOGICAL: Gross neurological examination did not reveal any focal deficits. SKIN: No rashes. - Labs CBC & Chem 7: 04/12/19 08:34 04/12/19 08:34 Labs: Abnormal Lab Results - Last 24 Hours (Table) 04/11/19 04/12/19 Range/Units 10:24 08:34 Chloride 108 H (98-107) mmol/L BUN 3 L (7-17) mg/dL Glucose 63 L (74-99) mg/dL Calcium 8.3 L (8.4-10.2) mg/dL Total Protein 5.6 L (6.3-8.2) g/dL Albumin 3.1 L (3.5-5.0) g/dL IgG3 7.2 L (11.0-85.0) mg/dL Microbiology - Last 24 Hours (Table) 04/11/19 00:30 Blood Culture - Preliminary Blood No Growth after 48 hours 04/11/19 11:05 Urine Culture - Final Urine,Voided Assessment and Plan Assessment: Acute descending colitis Acute Pancreatitis Possible urinary tract infection. Urine culture were negative Nicotine dependence substance abuse, marijuana History of anxiety Plan: This is a pleasant 33 years old female who presents with pancreatitis and colitis. Continue with antibiotics. Continue with IV fluid. Pain management. GI consult is already called by the emergency room team.Labs and medication were reviewed.. Continue same treatment. Continue with symptomatic treatment. Resume home medication. Monitor lytes and vitals. DVT and GI prophylaxis. Further recommendations of the clinical course of the patient DVT prophylaxis: Subcutaneous Lovenox GI Prophylaxis: Pepcid Prognosis is guarded
[2019-04-13] MEDS: PANTOPRAZOLE 40 MG/10 ML VIAL IVP SCH (08:42)
[2019-04-13] MEDS: SENNOSIDES-DOCUSATE SODIUM 1 EACH TAB PO SCH ×2 (08:43→19:15)
[2019-04-13 10:03] LABS: Basophils % (A) 1 %; Eosinophils # (A) 0.2 k/uL (0-0.7); Eosinophils % (A) 3 %; HCT 37.7 % (34.0-46.0); HGB 12.1 gm/dL (11.4-16.0); Lymphocytes # (A) 1.8 k/uL (1.0-4.8); Lymphocytes % (A) 24 %; MCH 30.1 pg (25.0-35.0); MCHC 32.1 g/dL (31.0-37.0); MCV 93.8 fL (80.0-100.0); Mean Platelet Volume 7.1; Monocytes # (A) 0.5 k/uL (0-1.0); Monocytes % (A) 6 %; Neutrophils # (A) 4.6 k/uL (1.3-7.7); Neutrophils % (A) 62 %; Platelet Count 294 k/uL (150-450); RBC 4.02 m/uL (3.80-5.40); WBC 7.3 k/uL (3.8-10.6)
[2019-04-13 10:18] LABS: ALT 24 U/L (9-52); AST 19 U/L (14-36); Alkaline Phosphatase 41 U/L (38-126); Amylase <30 U/L (30-110); Anion Gap 6 mmol/L; Blood Urea Nitrogen 2 mg/dL (7-17); Calcium 8.3 mg/dL (8.4-10.2); Carbon Dioxide 26 mmol/L (22-30); Chloride 106 mmol/L (98-107); Glucose 71 mg/dL (74-99); Lipase 49 U/L (23-300); Potassium 3.6 mmol/L (3.5-5.1); Sodium 138 mmol/L (137-145); Total Bilirubin 0.3 mg/dL (0.2-1.3); Total Protein 5.5 g/dL (6.3-8.2)
[2019-04-13] MEDS: HYDROmorphone 1 MG/ML 1 ML SYRINGE IVP PRN (12:33)
[2019-04-13] MEDS ORDERED: MAGNESIUM CITRATE 296 ML BOTTLE PO ONE (14:30)
--- NOTE | 2019-04-13 14:32 | P.PN ---
Subjective Progress Note Date: 04/13/19 Principal diagnosis: Colitis pancreatitis Feeling better nausea improving unable to complete bowel prep last night secondary to increased abdominal cramping. Hemoglobin 12.1. Reports no GI bleeding. Tolerating clear liquids. Objective - Vital Signs Vital signs: Vital Signs Temp 98.6 F 04/13/19 07:00 Pulse 77 04/13/19 07:00 Resp 18 04/13/19 07:00 BP 121/79 04/13/19 07:00 Pulse Ox 98 04/13/19 07:00 Intake & Output 04/12/19 04/13/19 04/13/19 18:59 06:59 18:59 Intake Total 540 200 Balance 540 200 Intake: Oral 540 200 Other: Voiding Method Toilet # Voids 2 2 - Exam General appearance: The patient is alert, oriented, in no acute distress. HET: Head is normocephalic and atraumatic. Pupils are equal and reactive. Oropharynx is clear without lesions. Neck: Supple without lymphadenopathy. Trachea midline. Heart: S1 S2. Regular rate and rhythm. Lungs: No crackles or wheezes are heard. Abdomen: Soft, mild tenderness to the lower abdomen bilaterally, nondistended with bowel sounds. No peritoneal signs. No palpable organomegaly or masses. Extremities: Normal skin color and turgor. No cyanosis, rash, ulceration, clubbing, or edema. Radial and pedal pulses are 2/4 bilaterally. Neurological: No focal deficits. Strength and sensation are grossly intact. - Labs CBC & Chem 7: 04/13/19 09:33 04/13/19 09:33 Labs: Abnormal Lab Results - Last 24 Hours (Table) 04/13/19 Range/Units 09:33 BUN 2 L (7-17) mg/dL Glucose 71 L (74-99) mg/dL Calcium 8.3 L (8.4-10.2) mg/dL Total Protein 5.5 L (6.3-8.2) g/dL Albumin 3.0 L (3.5-5.0) g/dL Amylase <30 L (30-110) U/L Microbiology - Last 24 Hours (Table) 04/11/19 00:30 Blood Culture - Preliminary Blood No Growth after 48 hours 04/11/19 11:05 Urine Culture - Final Urine,Voided Assessment and Plan (1) Acute pancreatitis Narrative/Plan: 33-year-old female admitted with acute leukocytosis, abdominal pain constipation with reports of black-colored bowel movement without overt hematemesis hematochezia elevated liver enzymes consistent with acute pancreatitis with normal liver function studies. CT reported descending colitis no reported abnormalities of the liver spleen pancreas or biliary tree. Etiology of pancreatitis and colitis is unclear. Differentials to consider but not limited to regarding acute pancreatitis could be pancreatic divisum, peptic ulcer disease, idiopathic, autoimmune possible viral. Etiology of colitis possible infectious possible inflammatory possible ischemic secondary to reported constipation. Presently no clinical evidence of active GI bleeding. Current Visit: Yes Status: Acute Code(s): K85.90 - ACUTE PANCREATITIS WITHOUT NECROSIS OR INFECTION, UNSP SNOMED Code(s): 044136798 (2) Acute colitis Current Visit: Yes Status: Acute Code(s): K52.9 - NONINFECTIVE GASTROENTERITIS AND COLITIS, UNSPECIFIED SNOMED Code(s): 56499636 (3) Unexplained weight loss Current Visit: Yes Status: Acute Code(s): R63.4 - ABNORMAL WEIGHT LOSS SNOMED Code(s): 807225407 (4) Marijuana smoker Current Visit: Yes Status: Acute Code(s): F12.90 - CANNABIS USE, UNSPEC IFIED, UNCOMPLICATED SNOMED Code(s): 656131354 Plan: 1. Clear liquid diet. Will attempt EGD colonoscopy tomorrow afternoon. We'll give one bottle of citrated magnesia followed by GoLYTELY this evening. The grain distributor has discussed the risks, benefits and alternative therapies for the above-mentioned procedure and for both sedation/analgesia as well as necessary blood product administration, if indicated, as they pertain to this patient. The patient has indicated understanding and acceptance of the risks and procedures discussed. Assessment and plan a care discussed with Dr. Enrique
[2019-04-13] MEDS ORDERED: PEG 3350-NA SULF,BICARB,CL/KCL 4,000 ML BOTTLE PO ONE (17:00)
[2019-04-13] MEDS ORDERED: LACTATED RINGERS 1,000 ML IV SCH (18:29)
[2019-04-14] MEDS: metroNIDAZOLE-NS PMX 500 MG in SALINE 1 100ML.BAG IVPB SCH ×4 (00:05→17:19)
[2019-04-14] MEDS: PROMETHAZINE INJ 25 MG in SODIUM CHLORIDE 0.9% 50 ML IVPB PRN (01:10)
[2019-04-14] MEDS: HYDROmorphone 1 MG/ML 1 ML SYRINGE IVP PRN ×2 (01:35→20:42)
[2019-04-14] MEDS ORDERED: methylPREDNISolone SOD SUCCI 125 MG/2 ML VIAL IV STA (02:00)
[2019-04-14] MEDS ORDERED: diphenhydrAMINE 50 MG/ML 1 ML VIAL IVP STA (02:01)
[2019-04-14 08:27] LABS: Basophils % (A) 0 %; Eosinophils # (A) 0.1 k/uL (0-0.7); Eosinophils % (A) 1 %; HGB 13.1 gm/dL (11.4-16.0); Lymphocytes # (A) 0.8 k/uL (1.0-4.8); Lymphocytes % (A) 8 %; MCH 30.4 pg (25.0-35.0); MCHC 32.8 g/dL (31.0-37.0); MCV 92.7 fL (80.0-100.0); Mean Platelet Volume 6.9; Monocytes # (A) 0.2 k/uL (0-1.0); Monocytes % (A) 2 %; Neutrophils # (A) 8.8 k/uL (1.3-7.7); Neutrophils % (A) 88 %; Platelet Count 343 k/uL (150-450); RBC 4.31 m/uL (3.80-5.40); RDW 12.2 % (11.5-15.5); WBC 10.1 k/uL (3.8-10.6)
[2019-04-14 08:47] LABS: Anion Gap 12 mmol/L; Blood Urea Nitrogen 5 mg/dL (7-17); Calcium 8.6 mg/dL (8.4-10.2); Carbon Dioxide 20 mmol/L (22-30); Chloride 105 mmol/L (98-107); Glucose 82 mg/dL (74-99); Potassium 4.6 mmol/L (3.5-5.1); Sodium 137 mmol/L (137-145)
[2019-04-14] MEDS: SODIUM CHLORIDE 0.9% 1,000 ML IV SCH ×3 (08:57→23:27)
[2019-04-14] MEDS: PANTOPRAZOLE 40 MG/10 ML VIAL IVP SCH (08:57)
[2019-04-14] MEDS: SENNOSIDES-DOCUSATE SODIUM 1 EACH TAB PO SCH ×2 (09:00→21:22)
[2019-04-14 12:02] VITALS: BMI 23.0
[2019-04-14] MEDS ORDERED: MIDAZOLAM 2 MG/2 ML VIAL ONE (14:04)
[2019-04-14] MEDS ORDERED: PROPOFOL 10 MG/ML 20 ML VIAL IV ONE (14:04)
[2019-04-14] MEDS ORDERED: LIDOCAINE 1% INJ 10MG/ML (20 ML MDV) ONE (14:04)
[2019-04-14] MEDS ORDERED: fentaNYL (PF) 50 MCG/ML 2 ML AMP ONE (14:04)
[2019-04-14] MEDS ORDERED: SODIUM CHLORIDE 0.9% 1,000 ML IV ONE ×2 (14:06)
--- NOTE | 2019-04-14 14:28 | P.PN ---
Subjective his is a pleasant 33 years old female with past medical history of anxiety, substance abuse including marijuana, and nicotine dependence. She does not have medical insurance and she does not follow up with primary care doctor. She presents because of abdominal pain of 2 days' duration. Central, colicky, nonradiating, severe. Associated with dark stool and fresh blood per rectum, small amount for the last couple days. No nausea vomiting. She has some nausea in the emergency room may be related to medication. She denies fever. She denies chest pain or dyspnea. No urinary symptoms. No syncope or dizziness. She smokes about 1 cigarette per day. She uses marijuana at times. She drinks alcohol occasionally. No other illicit drugs. Patient is afebrile, tachycardic. She is hemodynamically stable. She has leukocytosis of 20 4.7K. INR within normal limits, with sodium 136. Creatinine 0.6. Urinalysis is suspicious for infection. Lipase 1751. And she has positive occult blood in stool. Abdominal CT with contrast done in emergency room: Ascending inflammatory or infectious colitis. In the emergency room patient received ceftriaxone. She was started on Dilaudid for pain, she received Reglan and Flagyl. And IV fluids 04/12/2019 Patient remains nothing by mouth, her abdominal pain is about 6/10 in severity associated with some tenderness in the left side however her abdominal exam looks soft and there is no rebound tenderness or guarding. She had severe vomiting yesterday which is better controlled with Phenergan, no more vomiting this morning. She has no bowel movement or gas. Abdominal x-ray is ordered. P atient refused to check venous status and the serum, risks benefits and alternatives were explained. Gastroenterology team are following the case closely. A in a is negative. Her leukocytosis improved and her White cell count is 9.4K, hemoglobin 11.9. Triglycerides 86 and IgG G class are within normal except for IgG 3 slightly low at 7.2. GI team recommended clear liquid diet and preparation for possible EGD/colonoscopy tomorrow. 04/13/2019 Patient could not tolerate the preparation for her colonoscopy last night because of nausea and vomiting. She says she vomited twice last night. Patient refused to eat this morning. However patient states that her pain level is 2- 3/10 in severity. She has a little bump on movement yesterday. She has low- grade fever today of 99.9. Her leukocytosis improved yesterday. WBC 9.4K. Labs from today are still pending. Urine culture showed no growth. Stool culture still pending today. No chest pain or dyspnea. On abdominal exam she has soft abdomen. She still have some tenderness in the left side of the belly. Abdominal x-rays was negative for intestinal obstruction or other lesion. GI team are following the case. Patient remains on Flagyl and ceftriaxone. 04/14/2019 Patient states that her abdominal pain is significantly improved down to 1-2/10 in severity. She had good bowel movement however she still have some nausea vomiting with eating. Patient is going for EGD/colonoscopy today. Case was discussed with the gastroenterology team. Patient wants to stay in the hospital 1 more day to see if she can't tolerate diet after the scope. Discharge plan was discussed with the patient and she agrees to follow up with GI team and ask medical team to make an appointment for her as self pay because she does not have medical insurance. Last night she developed a rash in her shoulder and neck, she has picture and 4 for it. Patient received 1 dose of steroids and Benadryl and this morningcompletely resolved. There is no new medication was taking since admission except the GoLYTELY as confirmed by the patient to me. However number GoLYTELY is given for the patient today. She is hemodynamically stable Objective - Vital Signs Vital signs: Vital Signs Temp 98.0 F 04/14/19 10:13 Pulse 74 04/14/19 10:13 Resp 18 04/14/19 10:13 BP 148/94 04/14/19 13:58 Pulse Ox 95 04/14/19 10:13 Intake & Output 04/13/19 04/14/19 04/14/19 18:59 06:59 18:59 Intake Total 540 1000 1780 Balance 540 1000 1780 Weight 58.967 kg Intake: IV 1300 Sodium Chloride 0.9% 1, 1200 000 ml @ 150 mls/hr IV . Q6H40M NAE Rx#:[id number] metroNIDAZOLE-NS PMX 500 100 mg In Saline 1 100ml.bag @ 100 mls/hr IVPB Q6HR NAE Rx#:[id number] Oral 540 1000 480 Other: Voiding Method Toilet # Voids 3 2 # Bowel Movements 1 2 - Exam GENERAL: The patient is alert and oriented x3, not in any acute distress. Well developed, well nourished. HEENT: Pupils are round and equally reacting to light. EOMI. No scleral icterus. No conjunctival pallor. Normocephalic, atraumatic. No pharyngeal erythema. No thyromegaly. CARDIOVASCULAR: S1 and S2 present. No murmurs, rubs, or gallops. PULMONARY: Chest is clear to auscultation, no wheezing or crackles. -ABDOMEN: Soft, left side with less tenderness, no rebound tenderness or guarding, nondistended, normoactive bowel sounds. No palpable organomegaly. MUSCULOSKELETAL: No joint swelling or deformity. EXTREMITIES: No cyanosis, clubbing, or pedal edema. NEUROLOGICAL: Gross neurological examination did not reveal any focal deficits. SKIN: No rashes. - Labs CBC & Chem 7: 04/14/19 07:47 04/14/19 07:47 Labs: Abnormal Lab Results - Last 24 Hours (Table) 04/14/19 04/14/19 Range/Units 07:47 07:47 Neutrophils # 8.8 H (1.3-7.7) k/uL Lymphocytes # 0.8 L (1.0-4.8) k/uL Carbon Dioxide 20 L (22-30) mmol/L BUN 5 L (7-17) mg/dL Creatinine 0.50 L (0.52-1.04) mg/dL Microbiology - Last 24 Hours (Table) 04/11/19 00:30 Blood Culture - Preliminary Blood No Growth after 72 hours 04/11/19 14:50 Stool Culture - Preliminary Stool Assessment and Plan Assessment: Acute descending colitis Acute Pancreatitis Possible urinary tract infection. Urine culture were negative Nicotine dependence substance abuse, marijuana History of anxiety Plan: This is a pleasant 33 years old female who presents with pancreatitis and colitis. Continue with antibiotics. Continue with IV fluid. Pain management. GI consult is already called by the emergency room team.Labs and medication were reviewed.. Continue same treatment. Continue with symptomatic treatment. Resume home medication. Monitor lytes and vitals. DVT and GI prophylaxis. Further recommendations of the clinical course of the patient DVT prophylaxis: Subcutaneous Lovenox GI Prophylaxis: Pepcid Prognosis is guarded
--- NOTE | 2019-04-14 14:59 | P.PCN ---
Date of Procedure: 04/14/19 Description of Procedure: Brief history: 33-year-old female with a history of unexplained weight loss greater than 20 pounds over the last year, decreased appetite, anxiety chronic marijuana usage familial pancreatitis admitted with acute abdominal pain 2-3 days duration with constipation and elevated pancreatic enzymes. Over the past few days she's developed severe sharp pain across her lower abdomen umbilicus region associated with constipation. She took a dose of Pepto-Bismol. Passed a few very small bowel movement that she describes black in color. Denies gross hematemesis hematochezia. No changes in skin or vision. No recent antibiotics. No history of colitis or known bowel disorders or inflammatory bowel diseases. No history of pancreatitis. She reports her father having a history of recurrent pancreatitis of unclear etiology. No aspirin and NSAIDs or alcohol usage. No history of pancreatitis. Admission white count 24.7 presently 15.7. Hemoglobin 12.1. LFTs within normal limits. Amylase 152. Lipase 1751. FOBT positive. CT abdomen and pelvis unremarkable liver pancreas gallbladder and bile ducts. Marked wall thickening with adjacent stranding seen within the descending colon suggesting nonspecific inflammatory or infectious colitis. Procedure performed: Esophagogastroduodenoscopy with biopsy Colonoscopy Estimated blood loss: Minimal. Preoperative diagnosis: Anesthesia: MAC Procedure: After informed consent was obtained from the patient was brought into the endoscopy unit and IV sedation was administered by anesthesia under continuous monitoring. Initially upper endoscopy was done. The Olympus GF 190 video endoscope was inserted inserted into the mouth and esophagus intubated without any difficulty and was gradually advanced into the stomach and duodenum and carefully examined. The bulb and second part of the duodenum appeared normal, with biopsies taken. The scope was then withdrawn into the stomach adequately insufflated with air and upon careful examination the antrum and body, cardia and fundus appeared normal, with some findings of mild erythema in the antrum and body suggestive of mild gastritis with biopsies taken. The scope was then withdrawn into the esophagus. The GE junction was located at 37 cm to the incisors. It appeared regular with no erythema erosions or ulcerations. Rest of the esophagus appeared normal. Patient tolerated the procedure well. At this time the patient continued to remain sedation. Initial digital rectal examination was normal. Olympus CF 190 video colonoscope was then inserted into the rectum and gradually advanced to the cecum without any difficulty. Careful examination was performed as the scope was gradually being withdrawn. The prep was excellent. The cecum, ascending colon, transverse colon, descending colon, sigmoid colon and rectum appeared grossly normal except for 20 cm of large bowel in the descending colon from approximately 40 cm from the anal verge to 20 cm from the anal verge which showed erythema and edema and friability consistent with mild to moderate colitis, with biopsies taken. Rectal biopsies were also taken. Retroflexion was performed in the rectum and no lesions were noted. Moderate internal hemorrhoids seen. Patient tolerated the procedure well. Impression: 1. Mild to moderate colitis of the descending colon, biopsied. 2. Moderate internal hemorrhoids. 3. Rectal biopsies. Recommendations: Findings of this examination were discussed with the patient. Okay for liquid diet. Await pathology from biopsies. Continue antibiotic therapy. Further recommendations pending clinical course and findings from biopsies.
[2019-04-14] MEDS ORDERED: HYDROmorphone 1 MG/ML 1 ML SYRINGE IVP PRN (21:20)
[2019-04-14] MEDS ORDERED: ALPRAZolam 0.25 MG TAB PO STA (21:32)
[2019-04-14] MEDS: ONDANSETRON 4 MG/2 ML VIAL IVP PRN (22:09)
[2019-04-15] MEDS: metroNIDAZOLE-NS PMX 500 MG in SALINE 1 100ML.BAG IVPB SCH ×3 (01:03→13:03)
[2019-04-15] MEDS: PANTOPRAZOLE 40 MG/10 ML VIAL IVP SCH (09:15)
[2019-04-15] MEDS: SENNOSIDES-DOCUSATE SODIUM 1 EACH TAB PO SCH (09:15)
[2019-04-15 10:16] LABS: Basophils % (A) 1 %; Eosinophils # (A) 0.2 k/uL (0-0.7); Eosinophils % (A) 3 %; HCT 40.3 % (34.0-46.0); HGB 13.6 gm/dL (11.4-16.0); Lymphocytes # (A) 2.3 k/uL (1.0-4.8); Lymphocytes % (A) 30 %; MCH 30.5 pg (25.0-35.0); MCHC 33.7 g/dL (31.0-37.0); MCV 90.3 fL (80.0-100.0); Mean Platelet Volume 6.7; Monocytes # (A) 0.5 k/uL (0-1.0); Monocytes % (A) 6 %; Neutrophils # (A) 4.4 k/uL (1.3-7.7); Neutrophils % (A) 58 %; Platelet Count 375 k/uL (150-450); RBC 4.46 m/uL (3.80-5.40); RDW 12.5 % (11.5-15.5); WBC 7.6 k/uL (3.8-10.6)
[2019-04-15 10:24] LABS: ALT 61 U/L (9-52); AST 116 U/L (14-36); Albumin 3.7 g/dL (3.5-5.0); Alkaline Phosphatase 43 U/L (38-126); Amylase 52 U/L (30-110); Anion Gap 5 mmol/L; Blood Urea Nitrogen 2 mg/dL (7-17); Calcium 9.2 mg/dL (8.4-10.2); Carbon Dioxide 31 mmol/L (22-30); Chloride 103 mmol/L (98-107); Glucose 116 mg/dL (74-99); Lipase 836 U/L (23-300); Potassium 3.8 mmol/L (3.5-5.1); Sodium 139 mmol/L (137-145); Total Bilirubin 0.2 mg/dL (0.2-1.3); Total Protein 6.4 g/dL (6.3-8.2)
--- NOTE | 2019-04-15 13:42 | P.PN ---
Subjective Progress Note Date: 04/15/19 Principal diagnosis: Acute uncomplicated pancreatitis, descending colitis Patient seen lying in bed, pain much improved. Has tolerated diet. Patient is quite irate that I did not phone her friend after her procedure yesterday. Of note, I was not informed that the patient's friend needed to be called yesterday, and the patient is blaming the nursing staff from the hospital for not relaying the message. However I did have an extensive conversation with her prior to her procedure, as well as after the procedure was completed and the patient at no point mentioned that her friend was to be contacted. I did call the patient's friend and discussed her case as per her request. Objective - Vital Signs Vital signs: Vital Signs Temp 97.9 F 04/15/19 05:29 Pulse 74 04/15/19 05:29 Resp 14 04/15/19 05:29 BP 114/74 04/15/19 05:29 Pulse Ox 96 04/15/19 05:29 Intake & Output 04/14/19 04/15/19 04/15/19 18:59 06:59 18:59 Intake Total 2480 Balance 2480 Weight 58.967 kg Intake: IV 2000 Sodium Chloride 0.9% 1, 1200 000 ml @ 50 mls/hr IV . Q20H NAE Rx#:[id number] metroNIDAZOLE-NS PMX 500 100 mg In Saline 1 100ml.bag @ 100 mls/hr IVPB Q6HR NAE Rx#:[id number] Oral 480 Other: Voiding Method Toilet # Voids 1 - Exam On physical examination, patient appears comfortable in no apparent distress. HEAD: Normocephalic, atraumatic. EYES: No scleral icterus. No conjunctival injection. MOUTH: No lesions, tongue midline. NECK: Trachea midline, no gross abnormalities. CHEST: Clear to auscultation with no wheezing or rhonchi appreciated. HEART: Regular rate and rhythm. ABDOMEN: Soft. Bowel sounds are positive. No organomegaly. No guarding or rigi dity. EXTREMITIES: No pedal edema. SKIN: No rashes, no jaundice. NEUROLOGIC: Alert and oriented x3. No focal deficits. - Labs CBC & Chem 7: 04/15/19 09:57 04/15/19 09:57 Labs: Abnormal Lab Results - Last 24 Hours (Table) 05/25/19 Range/Units 09:57 Carbon Dioxide 31 H (22-30) mmol/L BUN 2 L (7-17) mg/dL Glucose 116 H (74-99) mg/dL AST 116 H (14-36) U/L ALT 61 H (9-52) U/L Lipase 836 H (23-300) U/L Microbiology - Last 24 Hours (Table) 04/11/19 00:30 Blood Culture - Preliminary Blood No Growth after 96 hours 04/11/19 14:50 Stool Culture - Final Stool Assessment and Plan (1) Acute pancreatitis Narrative/Plan: 33-year-old female admitted with acute leukocytosis, abdominal pain, const ipation and reports of black colored bowel movement without overt hematemesis or hematochezia. Patient had laboratory findings consistent with acute pancreatitis with normal liver functions. CT of the abdomen reported descending colitis with no abnormalities of the liver, spleen, pancreas or biliary tree autoimmune workup has been negative for etiology of pancreatitis, no biliary etiology noted on imaging or suggested by labs, and patient denies any excessive alcohol use. Current Visit: Yes Status: Acute Code(s): K85.90 - ACUTE PANCREATITIS WITHOUT NECROSIS OR INFECTION, UNSP SNOMED Code(s): 320237225 (2) Acute colitis Narrative/Plan: Acute colitis seen on CT imaging and redemonstrated on colonoscopy where it was found in approximately 20 cm of the descending colon with biopsies taken. Pathology from biopsies still pending. Differential includes inflammatory, infectious or ischemic process. Current Visit: Yes Status: Acute Code(s): K52.9 - NONINFECTIVE GASTROENTERITIS AND COLITIS, UNSPECIFIED SNOMED Code(s): 92409529 Plan: Supportive care Okay for low fiber diet Would complete a course of antibiotic therapy with patient currently on Flagyl and ceftriaxone Await pathology from biopsies Patient will need follow-up after discharge if pathology is consistent with Crohn's or ulcerative colitis Okay for discharge when medically stable Thank you for allowing us to participate in the care of the patient we will continue to follow
[2019-04-15 14:37] VITALS: BP 160/90; PULSE 99; RESP 16; TEMP 98.8
--- NOTE | 2019-04-20 14:13 | CDI ---
Documentation Clarification Form Date: 04/20/2019 2:01:38 PM From: SARAH Pascal; Kristan Patel [place] Phone: If you have a question about this query, please contact Kristan Patel [place] at [phone] between 8am and 5pm. Admit Date: 04/11/2019 12:06:00 AM Patient Name: Martha Hoskins Visit Number: [id number] Discharge Date: 04/15/2019 4:34:00 PM ATTENTION: The Clinical Documentation Specialists (CDI) and [facility] Coding Staff appreciate your assistance in clarifying documentation. Please respond to the clarification below the line at the bottom and electronically sign. The CDI & [facility] Coding staff will review the response and follow-up if needed. Please note: Queries are made part of the Legal Health Record. If you have any questions, please contact the author of this message via ITS. Dr. Paramjit [place] The patient presented with acute pancreatitis and colitis. She was started on IV antibiotics and IV fluids. Colonoscopy with biopsy was performed on 04-14-19. WBC on admission was 24.7 Clinical indicators: Positive occult blood in stool, constipation, abdominal pain. Radiology: CT showed marked wall thickening suggesting inflammatory or infectious colitis. For clarity of the final diagnosis related to the colon biopsy, please document in your discharge summary the final diagnosis based on the pathology results pt had acute pancreatitis and colitis, for further clarification please refer to GI and their note. NATHALYD
--- NOTE | 2019-04-26 11:02 | P.DS ---
Providers Date of admission: 04/11/19 00:06 Attending physician: Mark Mills Consults: 04/10/19 23:47 Consult Physician Routine Consulting Provider: Maik Sutton Consult Reason/Comments: Colitis; Pancreatitis. Positive occult blood in stool Do you want consulting provider notified?: Yes Primary care physician: Stated None Hospital Course: Diagnoses: Acute descending colitis Acute Pancreatitis Possible urinary tract infection. Urine culture were negative Nicotine dependence substance abuse, marijuana History of anxiety hospital course his is a pleasant 33 years old female with past medical history of anxiety, substance abuse including marijuana, and nicotine dependence. She does not have medical insurance and she does not follow up with primary care doctor. She presents because of abdominal pain of 2 days' duration. and found to have acute pancreatitis and descending colitis , pt was treated with pain management , kept NPO and parenteral fluids and antibiotic, pt also has been evaluated by GI team , she underwent EGD/Colonoscopy and biopsies were taken . and pt informed to follow up with GI clinic for results and she agree, pt asked medical team to make GI appointment for her although she does not have insurance and she agreed with appointment date and time and told me she will follow up. prior to discharge , abdominal pain was resolved and diet was advanced and her nausea and vomiting were controlled , pt eventually did not want to stay in the hospital for one more day for monitoring and stated she tolerated diet well and wanted to be discharged and that she will follow, group social worker consult was obtained while she is in house as well. pt was cleared by GI team for discharge Pt was instructed about the problems and management plan and Pt verbalized understanding and acceptance Pt is found stable and can be discharged to the community but needs follow up as outpt. pt agrees with appointment with GI office and its timing and stated he will follow up. however she said she will make her own appointment with PCP, pt was instructed to follow up with pcp in one week and she agrees Discharge exam Gen.: Patient alert awake and oriented X 3, NOT IN DISTRESS CVS: s1-s2, RRR, no murmur CHEST:bilateral CTA, no wheezing or crepitation Abdomen: Soft, no tenderness, no distention, positive bowel sounds Extremities: No leg edema or induration time spent : more than 35 min Patient Condition at Discharge: Serious Plan - Discharge Summary Discharge Rx Participant: No New Discharge Prescriptions: New Cefuroxime Axetil [Ceftin] 500 mg PO BID #14 tab metroNIDAZOLE [Flagyl] 500 mg PO Q8HR #20 tab Promethazine [Phenergan] 25 mg PO TID PRN 3 Days #9 tablet PRN Reason: Nausea And Vomiting Pantoprazole Sodium [Protonix] 40 mg PO DAILY #14 tablet. Discharge Medication List Cefuroxime Axetil [Ceftin] 500 mg PO BID #14 tab 04/15/19 [Rx] Pantoprazole Sodium [Protonix] 40 mg PO DAILY #14 tablet. 04/15/19 [Rx] Promethazine [Phenergan] 25 mg PO TID PRN 3 Days #9 tablet 04/15/19 [Rx] metroNIDAZOLE [Flagyl] 500 mg PO Q8HR #20 tab 04/15/19 [Rx] Follow up Appointment(s)/Referral(s): Maik Sutton MD [STAFF PHYSICIAN] - 05/03/19 10:15 am None,Stated [Primary Care Provider] - 1-2 days Patient Instructions/Handouts: Pancreatitis (DC), Low Fiber Diet (DC), Colitis (ED) Activity/Diet/Wound Care/Special Instructions: regular diet as tolerated activity is limited till you see your doctor we recommend to keep away from substances like alcohol or marijuana also we recommend you follow up with your family doctor and GI clinic as instructed for the biopsy results Discharge Disposition: HOME SELF-CARE
== END 2019-04-15 16:34 | disposition home or self-care (01) | DRG 391 ==
LOC: EC 19:52 → 4MS4W 04-11 00:06
PROVIDERS: ADMIT Hospitalist; ATTEND Hospitalist
PROC: 0DBK8ZX Excision of Ascending Colon, Via Natural or Artificial Opening Endoscopic, Diagnostic (ICD-10-PCS; principal; 2019-04-14 08:05)
PROC: 0DBP8ZX Excision of Rectum, Via Natural or Artificial Opening Endoscopic, Diagnostic (ICD-10-PCS; principal; 2019-04-14 08:05)
DX: K52.9 Noninfective gastroenteritis and colitis, unspecified (principal); K85.90 Acute pancreatitis without necrosis or infection, unspecified; F17.210 Nicotine dependence, cigarettes, uncomplicated; F41.9 Anxiety disorder, unspecified; K21.9 Gastro-esophageal reflux disease without esophagitis; K59.00 Constipation, unspecified; K64.8 Other hemorrhoids; Z82.49 Family history of ischemic heart disease and other diseases of the circulatory system; Z88.8 Allergy status to other drugs, medicaments and biological substances; R21 Rash and other nonspecific skin eruption
CPT/HCPCS: 36415; 43239; 45380; 74018; 74177; 80048; 80053; 81001; 81025; 82150; 82272; 82787; 83630; 83690; 84478; 85025; 85610; 85730; 86038; 87040; 87045; 87046; 87086; 87324; 88305; 96361; 96365; 96375; 96376; 99285

== ENCOUNTER 2023-03-31 18:58 | Emergency (ER) | payer OTHER ==
[2023-03-31 19:02] VITALS: TEMP 98.1
[2023-03-31] MEDS ORDERED: IPRATROPIUM 0.5 MG/2.5 ML NEBU INHALATION STA (19:13)
[2023-03-31] MEDS ORDERED: ALBUTEROL NEBULIZED 2.5 MG/3 ML INHALATION STA (19:13)
[2023-03-31] MEDS ORDERED: methylPREDNISolone SOD SUCCI 125 MG/2 ML VIAL IV STA (19:13)
--- NOTE | 2023-03-31 19:31 | ED ---
General Adult HPI - General Source: patient, RN notes reviewed, old records reviewed Mode of arrival: ambulatory Limitations: no limitations <Dillan Vilchis - Last Filed: 03/31/23 20:51> <Sonu Carmona - Last Filed: 03/31/23 22:31> - General Chief complaint: Shortness of Breath Stated complaint: SOB Time Seen by Provider: 03/31/23 19:00 - History of Present Illness Initial comments: This a 37-year-old female she states she was a little congested before she went to bed when she woke up she couldn't breathe and she was wheezing diffusely. Patient states she has no history of asthma she doesn't smoke and she's had no significant breathing problems in the past per patient denies any fever or chills per patient denies any chest pain or palpitations. Patient denies being around anyone she knows of that sick but she does work in a assisted living facility. Patient denies abdominal pain patient denies nausea vomiting (Dillan Vilchis) - Related Data Home Medications Medication Instructions Recorded Confirmed Albuterol Nebulized [Ventolin 2.5 mg INHALATION RT-Q6H PRN 03/31/23 03/31/23 Nebulized] diphenhydrAMINE [Benadryl] 25 mg PO QID PRN 03/31/23 03/31/23 guaiFENesin [Mucinex] 600 mg PO Q12H PRN 03/31/23 03/31/23 Previous Rx's Medication Instructions Recorded Albuterol Inhaler [Ventolin Hfa 2 puff INHALATION Q6H PRN #1 03/31/23 Inhaler] dispenser Azithromycin [Zithromax] 250 mg PO DAILY 4 Days #4 tab 03/31/23 predniSONE [Deltasone] 40 mg PO DAILY 5 Days #10 tab 03/31/23 Allergies Allergy/AdvReac Type Severity Reaction Status Date / Time rizatriptan [From Maxalt] AdvReac vision loss Verified 03/31/23 19:47 Review of Systems ROS Other: All systems not noted in ROS Statement are negative. <Dillan Vilchis - Last Filed: 03/31/23 20:51> ROS Other: All systems not noted in ROS Statement are negative. <Sonu Carmona - Last Filed: 03/31/23 22:31> ROS Statement: Those systems with pertinent positive or pertinent negative responses have been documented in the HPI. Past Medical History Past Medical History: No Reported History History of Any Multi-Drug Resistant Organisms: None Reported Past Surgical History: Back Surgery, Tonsillectomy Past Anesthesia/Blood Transfusion Reactions: No Reported Reaction Past Psychological History: Anxiety Smoking Status: Never smoker Past Alcohol Use History: Occasional Past Drug Use History: Marijuana - Past Family History Father Family Medical History: Hypertension Additional Family Medical History / Comment(s): pancreatitis <Dillan Vilchis - Last Filed: 03/31/23 20:51> General Exam Limitations: no limitations <Dillan Vilchis - Last Filed: 03/31/23 20:51> - General Exam Comments Initial Comments: GENERAL: Patient is well-developed and well-nourished. Patient is nontoxic and well- hydrated and is in moderate distress. ENT: Neck is soft and supple. No significant lymphadenopathy is noted. Oropharynx is clear. Moist mucous membranes. Neck has full range of motion without eliciting any pain. EYES: The sclera were anicteric and conjunctiva were pink and moist. Extraocular movements were intact and pupils were equal round and reactive to light. Eyelids were unremarkable. PULMONARY: Patient has diffuse expiratory wheezing CARDIOVASCULAR: There is a regular rate and rhythm without any murmurs gallops or rubs. ABDOMEN: Soft and nontender with normal bowel sounds. SKIN: Skin is clear with no lesions or rashes and otherwise unremarkable. NEUROLOGIC: Patient is alert and oriented x3. Cranial nerves II through XII are grossly intact. Motor and sensory are also intact. Normal speech, volume and content. Symmetrical smile. MUSCULOSKELETAL: Normal extremities with adequate strength and full range of motion. No lower extremity swelling or edema. No calf tenderness. LYMPHATICS: No significant lymphadenopathy is noted PSYCHIATRIC: Normal psychiatric evaluation. (Dillan Vilchis) Course Vital Signs 03/31/23 03/31/23 03/31/23 18:59 19:10 19:42 Temperature 98.1 F Pulse Rate 129 H 100 Respiratory 32 H 28 H Rate Blood Pressure 173/95 O2 Sat by Pulse 92 L 88 L Oximetry 03/31/23 03/31/23 03/31/23 19:55 20:06 21:25 Temperature Pulse Rate 100 107 H 102 H Respiratory 24 Rate Blood Pressure 128/104 O2 Sat by Pulse 98 Oximetry 03/31/23 03/31/23 03/31/23 21:34 21:46 22:02 Temperature Pulse Rate 112 H 115 H 116 H Respiratory 22 22 Rate Blood Pressure 145/101 O2 Sat by Pulse 95 96 Oximetry Medical Decision Making - Lab Data Result diagrams: 03/31/23 19:19 03/31/23 19:19 <Dillan Vilchis - Last Filed: 03/31/23 20:51> - Lab Data Result diagrams: 03/31/23 19:19 03/31/23 19:19 <Sonu Carmona - Last Filed: 03/31/23 22:31> - Medical Decision Making EKG was interpreted by myself shows sinus tachycardia at 112 bpm NE interval is 158 QRSs 89 QT interval 325 QTC is 392. Patient's EKG shows no ST segment elevation or depression Was pt. sent in by a medical professional or institution (, PA, PROCESSES CHEMICAL DESIGN ENGINEER, urgent care, hospital, or intermediate...) When possible be specific @ -[No] Did you speak to anyone other than the patient for history (EMS, parent, family, police, friend...)? What history was obtained from this source @ -[No] Did you review nursing and triage notes (agree or disagree)? Why? @ -[I reviewed and agree with nursing and triage notes] Were old charts reviewed (outside hosp., previous admission, EMS record, old EKG, old radiological studies, urgent care reports/EKG's, intermediate records)? Report findings @ -[No old charts were reviewed] Differential Diagnosis (chest pain, altered mental status, abdominal pain women, abdominal pain men, vaginal bleeding, weakness, fever, dyspnea, syncope, headache, dizziness, GI bleed, back pain, seizure, CVA, palpatations, mental health, musculoskeletal)? @ -Differential Dyspnea: Coronary syndrome, arrhythmia, tamponade, asthma, COPD, pulmonary embolism, pneumonia, pneumothorax, pulmonary effusion, anaphylaxis, diabetic ketoacidosis, flailed chest, pulmonary contusion, diaphragmatic rupture, anemia, neuromuscular, this is not meant to be an all-inclusive list. EKG interpreted by me (3pts min.). @ -[As above] X-rays interpreted by me (1pt min.). @ -Chest x-ray was interpreted by myself shows no acute abnormality. CT interpreted by me (1pt min.). @ -[None done] U/S interpreted by me (1pt. min.). @ -[None done] What testing was considered but not performed or refused? (CT, X-rays, U/S, labs)? Why? @ -[None] What meds were considered but not given or refused? Why? @ -[None] Did you discuss the management of the patient with other professionals (professionals i.e. , PA, PROCESSES CHEMICAL DESIGN ENGINEER, lab, RT, psych nurse, social work nurse, oil rig driller, teacher, sheriff's officer, bilingual case manager)? Give summary @ -[No] Was smoking cessation discussed for >3mins.? @ -[No] Was critical care preformed (if so, how long)? @ -[No] Were there social determinants of health that impacted care today? How? (Homelessness, low income, unemployed, alcoholism, drug addiction, transportation, low edu. Level, literacy, decrease access to med. care, fdc, rehab)? @ -[No] Was there de-escalation of care discussed even if they declined (Discuss DNR or withdrawal of care, Hospice)? DNR status @ -[No] What co-morbidities impacted this encounter? (DM, HTN, Smoking, COPD, CAD, Cancer, CVA, ARF, Chemo, Hep., AIDS, mental health diagnosis, sleep apnea, morbid obesity)? @ -[None] Was patient admitted / discharged? Hospital course, mention meds given and route, prescriptions, significant lab abnormalities, going to OR and other pertinent info. @ -I went back into reevaluate the patient I listened to the patient she still had some wheezing I told her that I will given another treatment and she made a statement that she has a breathing machine at home. I asked how long she had a breathing machine for she said 2 years and I asked her why she had this because she told me she had no breathing problems and then she started yelling at me that Y would think it's hers and questioned why they didn't asked if she had children and maybe it's one of her child's. Patient became very irate or unreasonable. I ordered another breathing treatment for the patient's and left the room for her to calm down. Patient's care will be taking over by Dr. Carmona at 9 PM (Dillan Vilchis) Patient signed out to me pending results of reevaluation. Originally presented in respiratory distress. No history of tobacco use, COPD, asthma. Patient's child does have a nebulizer at home. Presents complaining of a few days of increased shortness of breath and coughing. Noticed oxygen was low at home which is why she presented for evaluation. Workup was already completed, was pending reevaluation following an additional breathing treatment. She was wheezy on exam. Labs are remarkable for a undetectable troponin, negative viral swabs, as well as a leukocytosis of 14. Chest x-ray showed no obvious acute infiltrate or infectious process. On reevaluation, patient is still mildly wheezy but feels improved. An l aboratory pulse ox is 96%. Patient was agitated and angered just prior to me evaluating her, is feeling improved at this time. Is still mildly tachycardic but overall improved and would like to go home. Does not wish to stay any longer. Tachycardia likely secondary to multiple breathing treatments. We discussed strict return precautions and she was in agreement with this plan. She'll be started on a Z-Shashi here in the department and provided with prescriptions for steroids, Z-Shashi, albuterol inhaler. She was in agreement this plan. She is calm at this time and I answered all questions that she had. I will provide the patient with a prescription for azithromycin, prednisone, albuterol inhaler. I instructed the patient to follow up with their PCP in the next 1-3 days. I explained that the patient should return to the emergency department if they experience any worsening symptoms. Strict return precautions were discussed with the patient. The patient expressed understanding of these instructions. I answered all questions that the patient had. The patient was discharged home in good condition with their prescriptions and follow up information. Diagnosis/symptom? @ -Bronchospasm, bronchitis Acute, or Chronic, or Acute on Chronic? @ -Acute Uncomplicated (without systemic symptoms) or Complicated (systemic symptoms)? @ -Complicated Side effects of treatment? @ -none Exacerbation, Progression, or Severe Exacerbation] @ -no Poses a threat to life or bodily function? @ -no (Sonu Carmona) - Lab Data Lab Results 03/31/23 03/31/23 03/31/23 Range/Units 19:19 19:19 19:19 WBC 14.3 H (3.8-10.6) k/uL RBC 5.17 (3.80-5.40) m/uL Hgb 15.5 (11.4-16.0) gm/dL Hct 48.6 H (34.0-46.0) % MCV 94.1 (80.0-100.0) fL MCH 30.1 (25.0-35.0) pg MCHC 32.0 (31.0-37.0) g/dL RDW 12.9 (11.5-15.5) % Plt Count 331 (150-450) k/uL MPV 8.9 Neutrophils % (Manual) 64 % Lymphocytes % (Manual) 21 % Monocytes % (Manual) 2 % Eosinophils % (Manual) 13 % Neutrophils # (Manual) 9.15 H (1.3-7.7) k/uL Lymphocytes # (Manual) 3.00 (1.0-4.8) k/uL Monocytes # (Manual) 0.29 (0-1.0) k/uL Eosinophils # (Manual) 1.86 H (0-0.7) k/uL Nucleated RBCs 0 (0-0) /100 WBC Manual Slide Review Performed PT 10.0 (9.0-12.0) sec INR 0.9 (<1.2) APTT 25.4 (22.0-30.0) sec Sodium 138 (137-145) mmol/L Potassium 5.2 H (3.5-5.1) mmol/L Chloride 103 (98-107) mmol/L Carbon Dioxide 25 (22-30) mmol/L Anion Gap 10 mmol/L BUN 8 (7-17) mg/dL Creatinine 0.79 (0.52-1.04) mg/dL Est GFR (CKD-EPI)AfAm >90 (>60 ml/min/1.73 sqM) Est GFR (CKD-EPI)NonAf >90 (>60 ml/min/1.73 sqM) Glucose 122 H (74-99) mg/dL Plasma Lactic Acid Sterling (0.7-2.0) mmol/L Calcium 9.7 (8.4-10.2) mg/dL Magnesium 2.2 (1.6-2.3) mg/dL Total Bilirubin 0.6 (0.2-1.3) mg/dL AST 27 (14-36) U/L ALT 20 (4-34) U/L Alkaline Phosphatase 67 (38-126) U/L Troponin I (0.000-0.034) ng/mL Total Protein 8.1 (6.3-8.2) g/dL Albumin 4.6 (3.5-5.0) g/dL Influenza Type A (PCR) (Not Detectd) Influenza Type B (PCR) (Not Detectd) RSV (PCR) (Not Detectd) SARS-CoV-2 (PCR) (Not Detectd) 03/31/23 03/31/23 03/31/23 Range/Units 19:19 19:19 19:24 WBC (3.8-10.6) k/uL RBC (3.80-5.40) m/uL Hgb (11.4-16.0) gm/dL Hct (34.0-46.0) % MCV (80.0-100.0) fL MCH (25.0-35.0) pg MCHC (31.0-37.0) g/dL RDW (11.5-15.5) % Plt Count (150-450) k/uL MPV Neutrophils % (Manual) % Lymphocytes % (Manual) % Monocytes % (Manual) % Eosinophils % (Manual) % Neutrophils # (Manual) (1.3-7.7) k/uL Lymphocytes # (Manual) (1.0-4.8) k/uL Monocytes # (Manual) (0-1.0) k/uL Eosinophils # (Manual) (0-0.7) k/uL Nucleated RBCs (0-0) /100 WBC Manual Slide Review PT (9.0-12.0) sec INR (<1.2) APTT (22.0-30.0) sec Sodium (137-145) mmol/L Potassium (3.5-5.1) mmol/L Chloride (98-107) mmol/L Carbon Dioxide (22-30) mmol/L Anion Gap mmol/L BUN (7-17) mg/dL Creatinine (0.52-1.04) mg/dL Est GFR (CKD-EPI)AfAm (>60 ml/min/1.73 sqM) Est GFR (CKD-EPI)NonAf (>60 ml/min/1.73 sqM) Glucose (74-99) mg/dL Plasma Lactic Acid Sterling 1.8 (0.7-2.0) mmol/L Calcium (8.4-10.2) mg/dL Magnesium (1.6-2.3) mg/dL Total Bilirubin (0.2-1.3) mg/dL AST (14-36) U/L ALT (4-34) U/L Alkaline Phosphatase (38-126) U/L Troponin I <0.012 (0.000-0.034) ng/mL Total Protein (6.3-8.2) g/dL Albumin (3.5-5.0) g/dL Influenza Type A (PCR) Not Detected (Not Detectd) Influenza Type B (PCR) Not Detected (Not Detectd) RSV (PCR) Not Detected (Not Detectd) SARS-CoV-2 (PCR) Not Detected (Not Detectd) Disposition <Dillan Vilchis - Last Filed: 03/31/23 20:51> Is patient prescribed a controlled substance at d/c from ED?: No Time of Disposition: 21:40 <Sonu Carmona - Last Filed: 03/31/23 22:31> Clinical Impression: Acute bronchospasm, Acute reaction to situational stress, Bronchitis Disposition: HOME SELF-CARE Condition: Good Instructions (If sedation given, give patient instructions): Acute Bronchitis (ED) Prescriptions: predniSONE [Deltasone] 40 mg PO DAILY 5 Days #10 tab Albuterol Inhaler [Ventolin Hfa Inhaler] 2 puff INHALATION Q6H PRN #1 dispenser PRN Reason: Wheezing Azithromycin [Zithromax] 250 mg PO DAILY 4 Days #4 tab Referrals: None,Stated [Primary Care Provider] - 1-2 days
[2023-03-31 19:39] LABS: INR 0.9 (<1.2); Partial Thromboplastin Time 25.4 sec (22.0-30.0)
[2023-03-31 19:42] LABS: ALT 20 U/L (4-34); AST 27 U/L (14-36); African American GFR (CKD) >90 (>60 ml/min/1.73 sqM); Albumin 4.6 g/dL (3.5-5.0); Alkaline Phosphatase 67 U/L (38-126); Anion Gap 10 mmol/L; Blood Urea Nitrogen 8 mg/dL (7-17); Calcium 9.7 mg/dL (8.4-10.2); Carbon Dioxide 25 mmol/L (22-30); Chloride 103 mmol/L (98-107); Glucose 122 mg/dL (74-99); Magnesium 2.2 mg/dL (1.6-2.3); Non-African American GFR(CKD) >90 (>60 ml/min/1.73 sqM); Potassium 5.2 mmol/L (3.5-5.1); Sodium 138 mmol/L (137-145); Total Bilirubin 0.6 mg/dL (0.2-1.3); Total Protein 8.1 g/dL (6.3-8.2)
--- NOTE | 2023-03-31 20:05 | XR ---
03/31/2023EXAMINATION TYPE: XR chest 2V DATE OF EXAM: 03/31/2023 7:35 PM COMPARISON: None TECHNIQUE: XR chest 2V Frontal and lateral views of the chest. CLINICAL INDICATION:Female, 37 years old with history of difficulty breathing; FINDINGS: Lungs/Pleura: There is no evidence of pleural effusion, focal consolidation, or pneumothorax. Pulmonary vascularity: Unremarkable. Heart/mediastinum: Cardiomediastinal silhouette is unremarkable. Musculoskeletal: No acute osseous pathology. IMPRESSION: 1. No acute cardiopulmonary disease process. 2. COPD changes.
[2023-03-31 20:08] LABS: HCT 48.6 % (34.0-46.0); HGB 15.5 gm/dL (11.4-16.0); MCH 30.1 pg (25.0-35.0); MCV 94.1 fL (80.0-100.0); Mean Platelet Volume 8.9; Platelet Count 331 k/uL (150-450); RBC 5.17 m/uL (3.80-5.40); RDW 12.9 % (11.5-15.5); WBC 14.3 k/uL (3.8-10.6)
[2023-03-31] MEDS ORDERED: IPRATROPIUM-ALBUTEROL 3 ML NEB INHALATION STA (20:45)
[2023-03-31 21:26] LABS: Eosinophils # (M) 1.86 k/uL (0-0.7); Monocytes # (M) 0.29 k/uL (0-1.0); Neutrophils # (M) 9.15 k/uL (1.3-7.7); Neutrophils % (M) 64 %; Nucleated Red Blood Cells 0 /100 WBC (0-0); Total Cells Counted 100
[2023-03-31 21:47] VITALS: RESP 22
[2023-03-31] MEDS ORDERED: AZITHROMYCIN 500 MG TAB PO STA (21:50)
[2023-03-31 22:03] VITALS: BP 145/101; PULSE 116
== END 2023-03-31 22:06 | disposition home or self-care (01) ==
LOC: EC 18:58
DX: J20.9 Acute bronchitis, unspecified (principal); F43.0 Acute stress reaction; J44.9 Chronic obstructive pulmonary disease, unspecified; F41.9 Anxiety disorder, unspecified; F12.90 Cannabis use, unspecified, uncomplicated; Z79.899 Other long term (current) drug therapy; Z88.8 Allergy status to other drugs, medicaments and biological substances; Z20.822 Contact with and (suspected) exposure to COVID-19
CPT/HCPCS: 36415; 94640 ×2; 93005; 80053; 83605; 83735; 84484; 85025; 85610; 85730; 87636; 71046; 99285; 96374; J2930